=== PATIENT | male | born 1960 | race African-American/Black ===

== ENCOUNTER 2018-02-08 05:48 | Inpatient (IN) | payer OTHER ==
[~2018-02-08] VITALS: Ht 195.6 cm; Wt 96.2 kg
[~2018-02-08 05:48] MED LIST: BACLOFEN10 MG PO; FERROUS SULFAT325 MG PO; GABAPENTIN400 MG PO; NORCO 10-325 T1 EACH PO; OXYBUTYNIN CHLOR5 MG PO; VIT C PO; VIT E PO; ZINC SULFATE220 MG PO
[2018-02-08] MEDS ORDERED: CEFAZOLIN SOD 1 GM VIAL ONE (07:45)
[2018-02-08] MEDS ORDERED: BACITRACIN 50,000 UNIT VIAL ONE ×2 (08:15→09:02)
[2018-02-08] MEDS ORDERED: MUPIROCIN 2% OINT 22 GM TUBE ONE (10:50)
[2018-02-08 12:00] VITALS: BP 142/69
[2018-02-08 13:00] VITALS: BP 142/69
--- NOTE | 2018-02-08 14:48 | Operative Report ---
DATE OF PROCEDURE: February 08, 2018 PREOPERATIVE DIAGNOSES 1. Sacral pressure ulcer, stage IV. 2. Right ischial pressure sore, unstageable. POSTOPERATIVE DIAGNOSES 1. Sacral pressure ulcer, stage IV. 2. Right ischial pressure sore, unstageable. PROCEDURES 1. Excision of sacral pressure ulcers and fasciocutaneous flap closure. 2. Direct excision of right ischial pressure sore and direct closure. ANESTHESIA: General. HISTORY: The patient is a 57-year-old C6 quadriplegic since 2007. He has had multiple pressure sores in the past that have been repaired. He has a large sacral ulcer and a right ischial pressure ulcer. The risks, benefits and alternatives of treatment were discussed with the patient. He is prepared to undergo the procedures outlined. DETAILS OF PROCEDURE: Patient was marked preoperatively in the holding area. He was brought to the operating theater. After the induction of adequate general anesthesia, he was then placed prone on the operating table. A time out was performed, and he was then prepped and draped in the prone position. At this point, the right ischial pressure sore was marked out. Then it was incised through the skin and subcutaneous tissues sharply. The incision was carried through the deep subcutaneous tissue until the entire ulcer was completely excised. It was removed. The wound was irrigated with antibiotic-containing solution. The wound was then made hemostatic using electrocautery and then closed with 2-0 Vicryl in interrupted buried fashion followed by 3-0 nylon in interrupted horizontal mattress fashion. The sacral pressure ulcer first had its skin edges excised full thickness down to the level of the sacrum. At this point, all the colonized capsule and granulation tissue were then curetted and removed. The wound was then pulse lavaged with several liters of antibiotic-containing solution. Because of the size of the defect, a large fasciocutaneous rotation advancement flap was then designed. The incision was made through the skin and subcutaneous tissues. Bleeding was controlled using electrocautery. Using electrocautery, the incision was deepened through the subcutaneous and the fascial tissues. The fasciocutaneous flap was then elevated off of the musculature of the upper sacrum and the lower back until sufficient rotation and advancement of the flap could be performed and the wound closed primarily without any undue tension. At this point, 10-Ecuadorean drains were placed percutaneously through the upper portions of the lower back and the drains secured to the skin using 3-0 nylon sutures. The flap was then advanced and rotated into place and secured using 2-0 Vicryl in an interrupted fashion to approximate the deep fascial layer, and 3-0 Vicryl in interrupted buried fashion was used to approximate the deep dermis, and 3-0 nylon was then used in a horizontal interrupted mattress fashion to approximate the superficial tissues. A VAC dressing was then placed over the entire incision and set for 150 mm of continuous negative pressure, and the seal was noted to be satisfactory without leaks. The right ischial pressure sore was dressed with Xeroform gauze, Bactroban ointment and a sterile dressing. The patient was then made supine onto a [place] bed. He was extubated and returned to the recovery room in satisfactory condition and admitted for further care and treatment. Job#: [id number]
[2018-02-08 16:21] VITALS: BP 136/72
[2018-02-08] MEDS ORDERED: ACETAMINOPHEN 325 MG TAB PO PRN (16:45)
[2018-02-08] MEDS ORDERED: ONDANSETRON HCL INJ 2 MG/ML VIAL IV PRN (16:45)
[2018-02-08] MEDS: CEFAZOLIN SOD 1 GM VIAL IV SCH (16:47)
[2018-02-08] MEDS: GABAPENTIN 400 MG CAP PO SCH (16:47)
[2018-02-08] MEDS: BACLOFEN 10 MG TAB PO SCH (16:47)
[2018-02-08] MEDS ORDERED: BACLOFEN 10 MG TAB PO SCH (17:00)
[2018-02-08] MEDS: OXYBUTYNIN CHLORIDE 5 MG TAB PO SCH (17:14)
[2018-02-08] MEDS ORDERED: ONDANSETRON HCL INJ 2 MG/ML VIAL ONE (17:35)
[2018-02-08] MEDS ORDERED: MIDAZOLAM HCL 2 MG/2 ML VIAL ONE (17:35)
[2018-02-08] MEDS ORDERED: SEVOFLURANE INHAL SOLN 250 ML PEN BTL ONE (17:35)
[2018-02-08] MEDS ORDERED: ROCURONIUM BROMIDE 10 MG/ML 5ML VIAL ONE (17:35)
[2018-02-08] MEDS ORDERED: GLYCOPYRROLATE INJ 1MG/ 5 ML SYR ONE (17:35)
[2018-02-08] MEDS ORDERED: DEXAMETHASONE SOD PHOS INJ 4 MG/ML VIAL ONE (17:35)
[2018-02-08] MEDS ORDERED: LIDOCAINE HCL 2% LOCAL INJ 5 ML SDV VIAL INJ ONE (17:35)
[2018-02-08] MEDS ORDERED: PROPOFOL IV EMULSION 10 MG/ML 20 ML VIAL ONE (17:35)
[2018-02-08] MEDS ORDERED: FENTANYL CITRATE/PF 100MCG/2 ML INJ ONE (17:35)
[2018-02-08] MEDS ORDERED: HYDROCODONE/APAP 10MG-325MG TAB PO SCH (18:00)
[2018-02-08 20:00] VITALS: BP 126/63
[2018-02-08 20:58] LABS: BASOPHILS % 0.3 % (0.0-1.0); EOSINOPHILS % 0.1 % (0.0-6.0); HEMATOCRIT 34.1 % (38.2-49.6); HEMOGLOBIN 10.5 g/dL (14.0-18.0); LYMPHOCYTES # (AUTO) 0.9 (1.0-3.2); LYMPHOCYTES % 12.7 % (18.0-39.1); MEAN CORPUSCULAR HEMOGLOBIN 27.9 pg (28-32); MEAN CORPUSCULAR HGB CONC 30.8 g/dL (31-35); MEAN CORPUSCULAR VOLUME 90.7 fL (81-99); MONOCYTES # (AUTO) 0.5 (0.2-0.8); MONOCYTES % 6.4 % (4.4-11.3); NEUTROPHILS # (AUTO) 5.9 (2.1-6.9); NEUTROPHILS % 80.2 % (38.7-80.0); PLATELET COUNT 240 x10e3/uL (140-360); RED BLOOD COUNT 3.76 x10e6/uL (4.3-5.7); RED CELL DISTRIBUTION WIDTH 15.9 % (11.7-14.4)
[2018-02-08 21:12] LABS: ANION GAP 12.9 mmol/L (8-16); BLOOD UREA NITROGEN 12 mg/dL (7-26); BUN/CREATININE RATIO 16 (6-25); CALCIUM 9.2 mg/dL (8.4-10.2); CARBON DIOXIDE 30 mmol/L (22-29); CHLORIDE 103 mmol/L (98-107); CREATININE, SERUM 0.75 mg/dL (0.72-1.25); EST GLOMERULAR FILTRATION RATE > 60 ML/MIN (60-); GLUCOSE 99 mg/dL (74-118); POTASSIUM 4.9 mmol/L (3.5-5.1); SODIUM 141 mmol/L (136-145)
[2018-02-09] VITALS (8 sets, daily range): BP systolic 104–149; BP diastolic 55–90
[2018-02-09] MEDS: CEFAZOLIN SOD 1 GM VIAL IV SCH ×3 (00:15→16:50)
[2018-02-09 04:50] LABS: BASOPHILS % 0.1 % (0.0-1.0); EOSINOPHILS # (AUTO) 0.1 (0.0-0.4); EOSINOPHILS % 1.4 % (0.0-6.0); HEMATOCRIT 32.5 % (38.2-49.6); LYMPHOCYTES # (AUTO) 2.1 (1.0-3.2); MEAN CORPUSCULAR HEMOGLOBIN 27.9 pg (28-32); MEAN CORPUSCULAR HGB CONC 30.8 g/dL (31-35); MEAN CORPUSCULAR VOLUME 90.8 fL (81-99); MONOCYTES # (AUTO) 0.7 (0.2-0.8); NEUTROPHILS # (AUTO) 6.1 (2.1-6.9); NEUTROPHILS % 67.1 % (38.7-80.0); PLATELET COUNT 232 x10e3/uL (140-360); RED BLOOD COUNT 3.58 x10e6/uL (4.3-5.7)
[2018-02-09 05:08] LABS: ANION GAP 12.4 mmol/L (8-16); BLOOD UREA NITROGEN 13 mg/dL (7-26); BUN/CREATININE RATIO 17 (6-25); CALCIUM 9.1 mg/dL (8.4-10.2); CARBON DIOXIDE 30 mmol/L (22-29); CHLORIDE 105 mmol/L (98-107); CREATININE, SERUM 0.78 mg/dL (0.72-1.25); EST GLOMERULAR FILTRATION RATE > 60 ML/MIN (60-); GLUCOSE 106 mg/dL (74-118); POTASSIUM 4.4 mmol/L (3.5-5.1); SODIUM 143 mmol/L (136-145)
[2018-02-09] MEDS: GABAPENTIN 400 MG CAP PO SCH ×2 (09:10→16:50)
[2018-02-09] MEDS: VITAMIN E 400 UNIT CAP PO SCH (09:10)
[2018-02-09] MEDS: OXYBUTYNIN CHLORIDE 5 MG TAB PO SCH (09:10)
[2018-02-09] MEDS: ASCORBIC ACID 500 MG TAB PO SCH (09:10)
[2018-02-09] MEDS: FERROUS SULFATE 325 MG TAB PO SCH (09:10)
[2018-02-09] MEDS: ZINC SULFATE 220 MG CAP PO SCH (09:10)
[2018-02-09] MEDS: BACLOFEN 10 MG TAB PO SCH ×2 (09:10→16:50)
[2018-02-09] MEDS: ENOXAPARIN SOD INJ 40 MG/0.4 ML SYR SC SCH (16:50)
[2018-02-10] VITALS (8 sets, daily range): BP systolic 90–154; BP diastolic 52–87
[2018-02-10] MEDS: CEFAZOLIN SOD 1 GM VIAL IV SCH ×3 (00:20→15:37)
[2018-02-10] MEDS: ZINC SULFATE 220 MG CAP PO SCH (09:28)
[2018-02-10] MEDS: OXYBUTYNIN CHLORIDE 5 MG TAB PO SCH (09:28)
[2018-02-10] MEDS: GABAPENTIN 400 MG CAP PO SCH ×2 (09:28→17:07)
[2018-02-10] MEDS: BACLOFEN 10 MG TAB PO SCH ×2 (09:28→17:07)
[2018-02-10] MEDS: VITAMIN E 400 UNIT CAP PO SCH (09:28)
[2018-02-10] MEDS: ASCORBIC ACID 500 MG TAB PO SCH (09:28)
[2018-02-10] MEDS: FERROUS SULFATE 325 MG TAB PO SCH (09:28)
[2018-02-10] MEDS: ENOXAPARIN SOD INJ 40 MG/0.4 ML SYR SC SCH (17:07)
[2018-02-11] VITALS (7 sets, daily range): BP systolic 106–127; BP diastolic 56–79
[2018-02-11] MEDS: CEFAZOLIN SOD 1 GM VIAL IV SCH ×3 (00:14→17:02)
[2018-02-11] MEDS: OXYBUTYNIN CHLORIDE 5 MG TAB PO SCH (07:48)
[2018-02-11] MEDS: GABAPENTIN 400 MG CAP PO SCH ×2 (07:48→17:02)
[2018-02-11] MEDS: ZINC SULFATE 220 MG CAP PO SCH (07:48)
[2018-02-11] MEDS: VITAMIN E 400 UNIT CAP PO SCH (07:48)
[2018-02-11] MEDS: BACLOFEN 10 MG TAB PO SCH ×2 (07:48→17:02)
[2018-02-11] MEDS: FERROUS SULFATE 325 MG TAB PO SCH (07:48)
[2018-02-11] MEDS: ASCORBIC ACID 500 MG TAB PO SCH (07:48)
[2018-02-11] MEDS ORDERED: DOCUSATE SODIUM 100 MG CAP PO PRN (09:45)
[2018-02-11] MEDS: SILVER ANTIMICROBIAL WOUND GEL 45ML TP SCH (12:00)
[2018-02-11] MEDS: ENOXAPARIN SOD INJ 40 MG/0.4 ML SYR SC SCH (17:02)
[2018-02-12] VITALS: BP 114/67
[2018-02-12] MEDS: CEFAZOLIN SOD 1 GM VIAL IV SCH ×3 (00:21→15:52)
[2018-02-12] MEDS: HYDROCODONE/APAP 10MG-325MG TAB PO PRN ×4 (00:45→21:30)
[2018-02-12 04:00] VITALS: BP 133/75
[2018-02-12 07:58] VITALS: BP 187/97
[2018-02-12] MEDS: ASCORBIC ACID 500 MG TAB PO SCH (09:39)
[2018-02-12] MEDS: ZINC SULFATE 220 MG CAP PO SCH (09:39)
[2018-02-12] MEDS: BACLOFEN 10 MG TAB PO SCH ×2 (09:39→15:52)
[2018-02-12] MEDS: OXYBUTYNIN CHLORIDE 5 MG TAB PO SCH (09:39)
[2018-02-12] MEDS: VITAMIN E 400 UNIT CAP PO SCH (09:39)
[2018-02-12] MEDS: FERROUS SULFATE 325 MG TAB PO SCH (09:39)
[2018-02-12] MEDS: GABAPENTIN 400 MG CAP PO SCH ×2 (09:39→15:52)
[2018-02-12] MEDS: ENOXAPARIN SOD INJ 40 MG/0.4 ML SYR SC SCH (15:52)
[2018-02-12 16:39] VITALS: BP 126/77
[2018-02-12 20:00] VITALS: BP 97/55
[2018-02-13] VITALS: BP 147/88
[2018-02-13] MEDS: CEFAZOLIN SOD 1 GM VIAL IV SCH ×3 (00:55→16:50)
[2018-02-13 04:00] VITALS: BP 119/55
[2018-02-13 08:30] VITALS: BP 172/96
[2018-02-13] MEDS: SILVER ANTIMICROBIAL WOUND GEL 45ML TP SCH (09:00)
[2018-02-13] MEDS: GABAPENTIN 400 MG CAP PO SCH ×2 (09:10→16:50)
[2018-02-13] MEDS: ASCORBIC ACID 500 MG TAB PO SCH (09:10)
[2018-02-13] MEDS: BACLOFEN 10 MG TAB PO SCH ×2 (09:10→16:50)
[2018-02-13] MEDS: VITAMIN E 400 UNIT CAP PO SCH (09:10)
[2018-02-13] MEDS: FERROUS SULFATE 325 MG TAB PO SCH (09:10)
[2018-02-13] MEDS: OXYBUTYNIN CHLORIDE 5 MG TAB PO SCH (09:10)
[2018-02-13] MEDS: ZINC SULFATE 220 MG CAP PO SCH (09:10)
[2018-02-13 12:25] VITALS: BP 172/96
[2018-02-13 16:22] VITALS: BP 167/99
[2018-02-13] MEDS: ENOXAPARIN SOD INJ 40 MG/0.4 ML SYR SC SCH (16:50)
[2018-02-13 20:00] VITALS: BP 109/59
[2018-02-14] VITALS (8 sets, daily range): BP systolic 93–155; BP diastolic 55–91
[2018-02-14] MEDS: CEFAZOLIN SOD 1 GM VIAL IV SCH ×3 (00:39→17:44)
[2018-02-14] MEDS: FERROUS SULFATE 325 MG TAB PO SCH (09:00)
[2018-02-14] MEDS: SILVER ANTIMICROBIAL WOUND GEL 45ML TP SCH (09:00)
[2018-02-14] MEDS: ASCORBIC ACID 500 MG TAB PO SCH (09:11)
[2018-02-14] MEDS: GABAPENTIN 400 MG CAP PO SCH ×2 (09:11→17:44)
[2018-02-14] MEDS: BACLOFEN 10 MG TAB PO SCH ×2 (09:11→17:44)
[2018-02-14] MEDS: OXYBUTYNIN CHLORIDE 5 MG TAB PO SCH (09:11)
[2018-02-14] MEDS: VITAMIN E 400 UNIT CAP PO SCH (09:11)
[2018-02-14] MEDS: ZINC SULFATE 220 MG CAP PO SCH (09:11)
[2018-02-14] MEDS: MUPIROCIN 2% OINT 22 GM TUBE TOP SCH (12:55)
[2018-02-14 16:42] LABS: BASOPHILS % 0.5 % (0.0-1.0); EOSINOPHILS # (AUTO) 0.4 (0.0-0.4); EOSINOPHILS % 3.9 % (0.0-6.0); HEMATOCRIT 33.8 % (38.2-49.6); HEMOGLOBIN 10.4 g/dL (14.0-18.0); LYMPHOCYTES # (AUTO) 1.8 (1.0-3.2); LYMPHOCYTES % 20.6 % (18.0-39.1); MEAN CORPUSCULAR HEMOGLOBIN 27.9 pg (28-32); MEAN CORPUSCULAR HGB CONC 30.8 g/dL (31-35); MEAN CORPUSCULAR VOLUME 90.6 fL (81-99); MONOCYTES # (AUTO) 0.8 (0.2-0.8); MONOCYTES % 9.4 % (4.4-11.3); NEUTROPHILS # (AUTO) 5.8 (2.1-6.9); NEUTROPHILS % 65.1 % (38.7-80.0); PLATELET COUNT 289 x10e3/uL (140-360); RED BLOOD COUNT 3.73 x10e6/uL (4.3-5.7); RED CELL DISTRIBUTION WIDTH 15.5 % (11.7-14.4)
[2018-02-14 17:00] LABS: ANION GAP 15.4 mmol/L (8-16); BLOOD UREA NITROGEN 16 mg/dL (7-26); BUN/CREATININE RATIO 21 (6-25); CALCIUM 9.8 mg/dL (8.4-10.2); CARBON DIOXIDE 28 mmol/L (22-29); CHLORIDE 101 mmol/L (98-107); CREATININE, SERUM 0.77 mg/dL (0.72-1.25); EST GLOMERULAR FILTRATION RATE > 60 ML/MIN (60-); GLUCOSE 84 mg/dL (74-118); POTASSIUM 4.4 mmol/L (3.5-5.1); SODIUM 140 mmol/L (136-145)
[2018-02-14] MEDS: ENOXAPARIN SOD INJ 40 MG/0.4 ML SYR SC SCH (17:44)
[2018-02-15] VITALS (7 sets, daily range): BP systolic 100–166; BP diastolic 60–79
[2018-02-15] MEDS: CEFAZOLIN SOD 1 GM VIAL IV SCH ×3 (00:45→18:18)
[2018-02-15] MEDS: FERROUS SULFATE 325 MG TAB PO SCH (07:49)
[2018-02-15] MEDS: ASCORBIC ACID 500 MG TAB PO SCH (07:50)
[2018-02-15] MEDS: SILVER ANTIMICROBIAL WOUND GEL 45ML TP SCH (07:50)
[2018-02-15] MEDS: VITAMIN E 400 UNIT CAP PO SCH (07:50)
[2018-02-15] MEDS: OXYBUTYNIN CHLORIDE 5 MG TAB PO SCH (07:50)
[2018-02-15] MEDS: ZINC SULFATE 220 MG CAP PO SCH (07:50)
[2018-02-15] MEDS: GABAPENTIN 400 MG CAP PO SCH ×2 (07:50→17:45)
[2018-02-15] MEDS: BACLOFEN 10 MG TAB PO SCH ×2 (07:50→17:45)
--- NOTE | 2018-02-15 14:02 | Discharge Summary ---
FINAL DISCHARGE DIAGNOSES 1. Sacral pressure ulcer, stage 4, status post excision of the sacral pressure ulcer with fasciocutaneous flap closure. 2. Right ischial pressure sore, unstageable. 3. Paraplegia. 4. Suprapubic catheter. CONSULTANTS: Plastic surgery. VITAL SIGNS: Temperature is 97, pulse 68, respiratory rate 16, blood pressure 125/64, pulse ox 99% on room air. LAB FINDINGS: White count 8.8, hemoglobin 10.4, hematocrit 33.8, platelets of 289. Chemistry: Sodium 140, potassium 4.4, chloride 101, bicarb 20, anion gap of 15, BUN 16, creatinine 0.77, glucose 84, calcium 9.8. MICROBIOLOGY: None. IMAGING STUDIES: None. HOSPITAL COURSE: This is a 57-year-old male with known paraplegia who came in as an admission by plastic surgery after having a sacral wound and having a fasciocutaneous flap closure performed by plastic surgery. Patient did extremely well with no other complaints. He also now has a wound VAC placed by plastic surgery. Patient is to continue with wound VAC and will be discharged to a care home facility. Patient does not have any obvious signs of infection, and no recommendation for IV antibiotics is needed. Patient was being treated by an outpatient wound care physician, and he was not on any antibiotics while he was there. Patient currently doing well with no other complaints. He has been accepted to a care home facility and to continue his wound VAC and monitoring of his wounds. On the day of discharge, vital signs are stable. Labs reviewed and stable. Patient seen, evaluated and examined thoroughly on the day of discharge. No other complaints. The patient verbalized an understanding and agrees with the plan of care, to follow up accordingly as an outpatient with the primary care physician in 1 week, plastic surgery in 2 weeks, and his wound care physician in 1 week. MEDICATIONS: See med reconciliation form. DISPOSITION: To care home facility. CONDITION: Stable. DIET: Heart healthy. FOLLOWUP: With wound care physician as an outpatient in 2 weeks, plastic surgeon in 2 weeks, and PCP in 1 week. In the event of any worsening, the patient was advised to come back to the ED for further evaluation. Discharge summary took greater than 35 minutes. Job#: [id number]
[2018-02-15] MEDS: MUPIROCIN 2% OINT 22 GM TUBE TOP SCH (16:13)
[2018-02-15] MEDS: ENOXAPARIN SOD INJ 40 MG/0.4 ML SYR SC SCH (17:45)
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
[2018-02-15] MEDS ORDERED: CEFAZOLIN SOD 1 GM/D5W 50ML 50 ML IV SCH (22:00)
[2018-02-16] VITALS: BP 109/65
[2018-02-16] MEDS: CEFAZOLIN SOD 1 GM VIAL IV SCH ×2 (00:03→10:23)
[2018-02-16 04:00] VITALS: BP 116/69
[2018-02-16 07:58] VITALS: BP 151/83
--- NOTE | 2018-02-16 10:21 | Discharge Summary ---
ADDENDUM TO DISCHARGE SUMMARY The patient was supposed to be discharged yesterday to a detention facility; but due to transportation issues, patient was kept overnight until 02/16/2018. Overnight the patient did well with no other complaints. No issues overnight with the nursing staff or with the patient. Vital signs: His temperature is 96.1, pulse 79, respiratory rate 20, blood pressure 151/83, pulse ox 100% on room air. Patient does not have any repeat labs. Patient is otherwise doing well. Patient will be discharged to detention facility later today. JACK MUNOZ MD Job#: [id number]
[2018-02-16] MEDS: ASCORBIC ACID 500 MG TAB PO SCH (10:23)
[2018-02-16] MEDS: MUPIROCIN 2% OINT 22 GM TUBE TOP SCH (10:23)
[2018-02-16] MEDS: VITAMIN E 400 UNIT CAP PO SCH (10:23)
[2018-02-16] MEDS: BACLOFEN 10 MG TAB PO SCH (10:23)
[2018-02-16] MEDS: OXYBUTYNIN CHLORIDE 5 MG TAB PO SCH (10:23)
[2018-02-16] MEDS: GABAPENTIN 400 MG CAP PO SCH (10:23)
[2018-02-16] MEDS: SILVER ANTIMICROBIAL WOUND GEL 45ML TP SCH (10:23)
[2018-02-16] MEDS: FERROUS SULFATE 325 MG TAB PO SCH (10:23)
[2018-02-16] MEDS: ZINC SULFATE 220 MG CAP PO SCH (10:23)
[2018-02-16 12:00] VITALS: BP 103/73
[2018-02-16 15:37] VITALS: BP 102/61
== END 2018-02-16 15:24 | DRG 573 ==
LOC: OR 05:48 → PACU V 13:04 → MED/SURG 13:20
PROVIDERS: ADMIT Plastic Surgery; ATTEND Plastic Surgery
PROC: 0JB70ZZ Excision of Back Subcutaneous Tissue and Fascia, Open Approach (ICD-10-PCS; 2018-02-08)
PROC: 0JX70ZC Transfer Back Subcutaneous Tissue and Fascia with Skin, Subcutaneous Tissue and Fascia, Open Approach (ICD-10-PCS; principal; 2018-02-08 08:30)
DX: L89.154 Pressure ulcer of sacral region, stage 4 (principal); G82.50 Quadriplegia, unspecified; L89.310 Pressure ulcer of right buttock, unstageable; Z96.0 Presence of urogenital implants; Z93.3 Colostomy status; Z87.440 Personal history of urinary (tract) infections; K59.00 Constipation, unspecified; N31.9 Neuromuscular dysfunction of bladder, unspecified; N39.498 Other specified urinary incontinence
CPT/HCPCS: 36415; 80048; 85025; 93005; 96376; 97139; 97605; 97606; J0690; J1100; J1650; J2001; J2250; J2405

== ENCOUNTER 2018-04-16 13:08 | Outpatient (RCR) | payer OTHER | END 2018-05-16 | LOC: WCC 13:08 | PROVIDERS: ATTEND Plastic Surgery | DX: T86.821 Skin graft (allograft) (autograft) failure (principal); L89.892 Pressure ulcer of other site, stage 2; L89.92 Pressure ulcer of unspecified site, stage 2; G82.20 Paraplegia, unspecified; K94.00 Colostomy complication, unspecified; Z74.01 Bed confinement status ==

== ENCOUNTER 2018-05-14 02:00 | Outpatient (RCR) | payer OTHER | END 2018-05-16 | LOC: WCC 02:00 | PROVIDERS: ATTEND Podiatrist Foot & Ankle Surgery | DX: T86.821 Skin graft (allograft) (autograft) failure (principal); L89.892 Pressure ulcer of other site, stage 2; L89.92 Pressure ulcer of unspecified site, stage 2; G82.20 Paraplegia, unspecified; K94.00 Colostomy complication, unspecified; Z74.01 Bed confinement status ==

== ENCOUNTER 2018-06-11 12:01 | Outpatient (RCR) | payer OTHER ==
[2018-05-17 13:59] LABS: BASOPHILS # (AUTO) 0.1 (0.0-0.1); BASOPHILS % 0.8 % (0.0-1.0); EOSINOPHILS # (AUTO) 0.5 (0.0-0.4); EOSINOPHILS % 6.2 % (0.0-6.0); HEMATOCRIT 33.1 % (38.2-49.6); HEMOGLOBIN 9.8 g/dL (14.0-18.0); LYMPHOCYTES # (AUTO) 1.7 (1.0-3.2); LYMPHOCYTES % 22.8 % (18.0-39.1); MEAN CORPUSCULAR HEMOGLOBIN 26.1 pg (28-32); MEAN CORPUSCULAR HGB CONC 29.6 g/dL (31-35); MEAN CORPUSCULAR VOLUME 88.3 fL (81-99); MONOCYTES # (AUTO) 0.8 (0.2-0.8); NEUTROPHILS # (AUTO) 4.4 (2.1-6.9); NEUTROPHILS % 58.8 % (38.7-80.0); PLATELET COUNT 336 x10e3/uL (140-360); RED BLOOD COUNT 3.75 x10e6/uL (4.3-5.7); RED CELL DISTRIBUTION WIDTH 17.2 % (11.7-14.4)
[2018-05-17 14:16] LABS: ALANINE AMINOTRANSFERASE 8 IU/L (0-55); ALBUMIN/GLOBULIN RATIO 0.7 (0.8-2.0); ALKALINE PHOSPHATASE 85 IU/L (40-150); ANION GAP 13.9 mmol/L (8-16); BLOOD UREA NITROGEN 14 mg/dL (7-26); BUN/CREATININE RATIO 20 (6-25); CALCIUM 9.3 mg/dL (8.4-10.2); CARBON DIOXIDE 28 mmol/L (22-29); CHLORIDE 106 mmol/L (98-107); EST GLOMERULAR FILTRATION RATE > 60 ML/MIN (60-); GLUCOSE 79 mg/dL (74-118); POTASSIUM 3.9 mmol/L (3.5-5.1); SODIUM 144 mmol/L (136-145)
[~2018-06-11 12:01] MED LIST changes: +MINERAL OIL/PETROLAT/GLYCERI 6OZ BTL ONE
[2018-06-11] MEDS ORDERED: MINERAL OIL/PETROLAT/GLYCERI 6OZ BTL ONE (18:22)
== END 2018-06-15 ==
LOC: WCC 12:01
PROVIDERS: ATTEND Podiatrist Foot & Ankle Surgery
DX: T86.821 Skin graft (allograft) (autograft) failure (principal); L89.892 Pressure ulcer of other site, stage 2; L89.92 Pressure ulcer of unspecified site, stage 2; Z74.01 Bed confinement status; K94.00 Colostomy complication, unspecified; G82.20 Paraplegia, unspecified
CPT/HCPCS: 36415; 80053; 84134; 85025; 87071; 87075; 87186; 87205

== ENCOUNTER 2018-07-23 10:25 | Outpatient (RCR) | payer OTHER ==
[~2018-07-23 10:25] MED LIST changes: +BALSAM PERU/CASTOR OIL 60 GM OINT...G. TP ONE
== END 2018-08-16 ==
LOC: WCC 10:25
PROVIDERS: ATTEND Podiatrist Foot & Ankle Surgery
DX: T86.821 Skin graft (allograft) (autograft) failure (principal); L89.213 Pressure ulcer of right hip, stage 3; L89.892 Pressure ulcer of other site, stage 2; L89.92 Pressure ulcer of unspecified site, stage 2; G82.20 Paraplegia, unspecified; K94.00 Colostomy complication, unspecified; Z74.01 Bed confinement status

== ENCOUNTER 2018-08-20 14:54 | Outpatient (RCR) | payer MEDICARE ==
[~2018-08-20 14:54] MED LIST changes: -BALSAM PERU/CASTOR OIL 60 GM OINT...G. TP ONE; +COLLAGENASE OINTMENT 30 GM TUBE ONE; +MUPIROCIN 2% OINT 22 GM TUBE ONE
== END 2018-09-13 ==
LOC: WCC 14:54
PROVIDERS: ATTEND Podiatrist Foot & Ankle Surgery
DX: T86.821 Skin graft (allograft) (autograft) failure (principal); L89.213 Pressure ulcer of right hip, stage 3; L89.892 Pressure ulcer of other site, stage 2; L89.92 Pressure ulcer of unspecified site, stage 2; G82.20 Paraplegia, unspecified; K94.00 Colostomy complication, unspecified; Z74.01 Bed confinement status

== ENCOUNTER 2018-09-17 11:09 | Outpatient (RCR) | payer MEDICARE ==
[~2018-09-17 11:09] MED LIST changes: -COLLAGENASE OINTMENT 30 GM TUBE ONE; -MINERAL OIL/PETROLAT/GLYCERI 6OZ BTL ONE; -MUPIROCIN 2% OINT 22 GM TUBE ONE
[2018-09-17] MEDS ORDERED: MUPIROCIN 2% OINT 22 GM TUBE ONE (12:12)
[2018-09-17] MEDS ORDERED: COLLAGENASE OINTMENT 30 GM TUBE ONE (12:12)
[2018-09-17] MEDS ORDERED: LIDOCAINE VISC 2% SOLN 15 ML UDC ONE (12:12)
== END 2018-10-14 ==
LOC: WCC 11:09
PROVIDERS: ATTEND Plastic Surgery
DX: T86.821 Skin graft (allograft) (autograft) failure (principal); L89.213 Pressure ulcer of right hip, stage 3; L89.892 Pressure ulcer of other site, stage 2; L89.92 Pressure ulcer of unspecified site, stage 2; G82.20 Paraplegia, unspecified; K94.00 Colostomy complication, unspecified; Z74.01 Bed confinement status
CPT/HCPCS: 87071; 87075; 87186; 87205

== ENCOUNTER 2018-11-05 12:41 | Outpatient (RCR) | payer MEDICARE ==
[~2018-11-05 12:41] MED LIST changes: +COLLAGENASE OINTMENT 30 GM TUBE ONE; +MINERAL OIL/PETROLAT/GLYCERI 6OZ BTL ONE
== END 2018-11-13 ==
LOC: WCC 12:41
PROVIDERS: ATTEND Plastic Surgery
DX: T86.821 Skin graft (allograft) (autograft) failure (principal); L89.213 Pressure ulcer of right hip, stage 3; L89.892 Pressure ulcer of other site, stage 2; L89.92 Pressure ulcer of unspecified site, stage 2; G82.20 Paraplegia, unspecified; K94.00 Colostomy complication, unspecified; Z74.01 Bed confinement status
CPT/HCPCS: 87071; 87075; 87205

== ENCOUNTER 2018-11-19 14:58 | Outpatient (RCR) | payer MEDICARE ==
[~2018-11-19 14:58] MED LIST changes: -COLLAGENASE OINTMENT 30 GM TUBE ONE; +LIDOCAINE/PRILOCAINE 2.5-2.5% KIT ONE
[2018-11-19 15:22] LABS: BASOPHILS % 0.5 % (0.0-1.0); EOSINOPHILS # (AUTO) 0.3 (0.0-0.4); EOSINOPHILS % 5.2 % (0.0-6.0); HEMATOCRIT 32.1 % (38.2-49.6); HEMOGLOBIN 9.7 g/dL (14.0-18.0); LYMPHOCYTES # (AUTO) 1.3 (1.0-3.2); LYMPHOCYTES % 20.2 % (18.0-39.1); MEAN CORPUSCULAR HEMOGLOBIN 26.1 pg (28-32); MEAN CORPUSCULAR HGB CONC 30.2 g/dL (31-35); MEAN CORPUSCULAR VOLUME 86.3 fL (81-99); MONOCYTES # (AUTO) 0.5 (0.2-0.8); MONOCYTES % 7.9 % (4.4-11.3); NEUTROPHILS # (AUTO) 4.2 (2.1-6.9); NEUTROPHILS % 65.9 % (38.7-80.0); PLATELET COUNT 357 x10e3/uL (140-360); RED BLOOD COUNT 3.72 x10e6/uL (4.3-5.7); RED CELL DISTRIBUTION WIDTH 18.5 % (11.7-14.4)
[2018-11-19 15:37] LABS: ALANINE AMINOTRANSFERASE 9 IU/L (0-55); ALBUMIN 2.8 g/dL (3.5-5.0); ALBUMIN/GLOBULIN RATIO 0.6 (0.8-2.0); ALKALINE PHOSPHATASE 80 IU/L (40-150); ANION GAP 11.8 mmol/L (8-16); BLOOD UREA NITROGEN 11 mg/dL (7-26); BUN/CREATININE RATIO 16 (6-25); CALCIUM 9.7 mg/dL (8.4-10.2); CARBON DIOXIDE 28 mmol/L (22-29); CHLORIDE 104 mmol/L (98-107); CREATININE, SERUM 0.69 mg/dL (0.72-1.25); EST GLOMERULAR FILTRATION RATE > 60 ML/MIN (60-); GLUCOSE 78 mg/dL (74-118); POTASSIUM 3.8 mmol/L (3.5-5.1); SODIUM 140 mmol/L (136-145)
[2018-11-19 15:44] LABS: ERYTHROCYTE SEDIMENTATION RATE 99 mm/hr (0-13)
== END 2018-12-14 ==
LOC: WCC 14:58
PROVIDERS: ATTEND Plastic Surgery
DX: T86.821 Skin graft (allograft) (autograft) failure (principal); L89.213 Pressure ulcer of right hip, stage 3; L89.892 Pressure ulcer of other site, stage 2; I87.312 Chronic venous hypertension (idiopathic) with ulcer of left lower extremity; L97.821 Non-pressure chronic ulcer of other part of left lower leg limited to breakdown of skin; G82.20 Paraplegia, unspecified; K94.00 Colostomy complication, unspecified; Z74.01 Bed confinement status
CPT/HCPCS: 36415; 80053; 84134; 85025; 85651

== ENCOUNTER 2018-12-17 15:00 | Outpatient (RCR) | payer MEDICARE ==
[~2018-12-17 15:00] MED LIST changes: -LIDOCAINE/PRILOCAINE 2.5-2.5% KIT ONE; -MINERAL OIL/PETROLAT/GLYCERI 6OZ BTL ONE
[2019-03-29] MEDS ORDERED: GABAPENTIN800 MG (09:51)
[2019-03-29] MEDS ORDERED: MULTI-VITAMIN1 EACH (09:51)
[2019-03-29] MEDS ORDERED: BACLOFEN20 MG (09:51)
[2019-03-29] MEDS ORDERED: Oxybutynin Chloride PO (09:51)
== END 2019-01-13 ==
LOC: WCC 15:00
PROVIDERS: ATTEND Plastic Surgery
DX: T86.821 Skin graft (allograft) (autograft) failure (principal); L89.892 Pressure ulcer of other site, stage 2; I87.312 Chronic venous hypertension (idiopathic) with ulcer of left lower extremity; L97.821 Non-pressure chronic ulcer of other part of left lower leg limited to breakdown of skin; G82.20 Paraplegia, unspecified; K94.00 Colostomy complication, unspecified; Z74.01 Bed confinement status

== ENCOUNTER → 2019-01-21 | Outpatient (CLI) | payer MEDICARE ==
[~2019-01-21] MED LIST changes: +BACLOFEN20 MG; +GABAPENTIN800 MG; +MULTI-VITAMIN1 EACH; +Oxybutynin Chloride PO
== END ==
LOC: WCC 12:26
PROVIDERS: ATTEND Plastic Surgery
DX: T86.821 Skin graft (allograft) (autograft) failure (principal); I87.312 Chronic venous hypertension (idiopathic) with ulcer of left lower extremity; L97.821 Non-pressure chronic ulcer of other part of left lower leg limited to breakdown of skin; L89.213 Pressure ulcer of right hip, stage 3; L89.892 Pressure ulcer of other site, stage 2; G82.20 Paraplegia, unspecified; K94.00 Colostomy complication, unspecified; Z74.01 Bed confinement status

== ENCOUNTER 2019-03-11 12:56 | Outpatient (RCR) | payer MEDICARE ==
[~2019-03-11 12:56] MED LIST changes: -BACLOFEN20 MG; -GABAPENTIN800 MG; +LIDOCAINE VISC 2% SOLN 15 ML UDC ONE; +MINERAL OIL/PETROLAT/GLYCERI 6OZ BTL ONE; -MULTI-VITAMIN1 EACH; -Oxybutynin Chloride PO
[2019-03-29] MEDS ORDERED: Oxybutynin Chloride PO (09:51)
[2019-03-29] MEDS ORDERED: BACLOFEN20 MG (09:51)
[2019-03-29] MEDS ORDERED: GABAPENTIN800 MG (09:51)
[2019-03-29] MEDS ORDERED: MULTI-VITAMIN1 EACH (09:51)
== END 2019-03-16 ==
LOC: WCC 12:56
PROVIDERS: ATTEND Plastic Surgery
DX: T86.821 Skin graft (allograft) (autograft) failure (principal); L89.213 Pressure ulcer of right hip, stage 3; L89.892 Pressure ulcer of other site, stage 2; K94.00 Colostomy complication, unspecified; I87.312 Chronic venous hypertension (idiopathic) with ulcer of left lower extremity; L97.821 Non-pressure chronic ulcer of other part of left lower leg limited to breakdown of skin; G82.20 Paraplegia, unspecified; Z74.01 Bed confinement status

== ENCOUNTER → 2019-04-02 | Day surgery (SDC) | payer MEDICARE ==
[~2019-04-02] MED LIST changes: +BACITRACIN 50,000 UNIT VIAL ONE; +BACLOFEN20 MG; +CEFAZOLIN SOD 1 GM/NS 50ML 50 ML IV ONE; +FENTANYL CITRATE/PF 100MCG/2 ML INJ ONE; +GABAPENTIN800 MG; -LIDOCAINE VISC 2% SOLN 15 ML UDC ONE; +MIDAZOLAM HCL 2 MG/2 ML VIAL ONE; +MINERAL OIL STERILE 10ML VIAL ONE; -MINERAL OIL/PETROLAT/GLYCERI 6OZ BTL ONE; +MULTI-VITAMIN1 EACH; +MUPIROCIN 2% OINT 22 GM TUBE ONE; +Oxybutynin Chloride PO; +PROPOFOL IV EMULSION 10 MG/ML 20 ML VIAL ONE
--- OUTSIDE RECORDS SUMMARY | 2019-04-02 06:17 | XMS REPORT | Continuity of Care Document ---
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 Dosing Weight 100, kg, Priority: STAT, Start date: 01/06/18 0:29:00 CDT, Stop date: 01/06/18 0:29:00 CDTNotes: (Same as: Motrin) "Do Not Crush" Give with food. Inactive 01/06/2018 [facility] Sodium Chloride 0.9% (Bolus) IV 1,000 mL, Infuse Over: 1 hr, Route: IV, ONCE, Priority: STAT, Dosing Weight 100 kg, Start date: 01/05/18 23:07:00 CDT, Stop date: 01/05/18 23:07:00 CDT Inactive 01/06/2018 [facility] Saline Flush 0.9% 10 mL, Route: IVP, Drug Form: INJ, Dosing Weight 100, kg, PRN, PRN Line Flush, Start date: 01/05/18 23:07:00 CDT, Duration: 30 day, Stop date: 02/04/18 23:06:00 CDTNotes: (Same as: BD Posiflush) No Longer Active 01/06/2018 [facility] Sulfamethoxazole 800 MG / Trimethoprim 160 MG Oral Tablet [Bactrim] 1 tab, PO, BID, X 7 day, # 14 tab, 0 Refill(s) Active 11/01/2016 [facility] Ciprofloxacin 500 MG Oral Tablet [Cipro] 500 mg=1 tab, PO, Q12H, X 7 day, # 14 tab, 0 Refill(s) Active 11/01/2016 [facility] Ceftriaxone 2 gm, Route: IVPB, ONCE, Dosing Weight 96.364, kg, Priority: STAT, Start date: 10/31/16 22:49:00 CDT, Stop date: 10/31/16 22:49:00 CDTNotes: (Same As: Rocephin). Use with 100 mL NS and infuse over 30 m in MEDICATION WASTE Product Size: 2000 mg Product Wasted: ___ mg Inactive 11/01/2016 [facility] Saline Flush 0.9% 10 mL, Route: IVP, Drug Form: INJ, Dosing Weight 96.364, kg, PRN, PRN Line Flush, Start date: 10/31/16 20:31:00 CDT, Duration: 30 day, Stop date: 11/30/16 20:30:00 CDTNotes: (Same as: BD Posiflush) No Longer Active 11/01/2016 [facility] Sodium Chloride 0.154 MEQ/ML Injectable Solution 1,000 mL, 1,000 ml/hr, Infuse Over: 1 hr, Route: IV, 1,000, Drug form: INJ, ONCE, Priority: STAT, Dosing Weight 96.364 kg, Start date: 10/31/16 20:31:00 CDT, Duration: 1 doses or times, Stop date: 10/31/16 20:31:00 CDT Inactive 11/01/2016 [facility] Saline Flush 0.9% 10 mL, Route: IVP, Drug Form: INJ, Dosing Weight 96.364, kg, PRN, PRN Line Flush, Start date: 08/24/15 11:26:00, Duration: 30 day, Stop date: 09/23/15 11:25:00Notes: Same as: BD Posiflush Sterile Inactive 08/24/2015 [facility] Aquaphor 1 appl, Route: TOP, Daily, Drug form: OINT, Start date: 05/22/15 14:00:00, Duration: 30 day, Stop date: 06/21/15 9:00:00Notes: (Same as: Aquaphor) Inactive 05/22/2015 [facility] ascorbic acid 500 mg=1 tab, PO, BID, 0 Refill(s) Active 05/22/2015 [facility] docusate sodium 100 mg oral capsule 100 mg=1 cap, PO, BID, PRN Constipation, 0 Refill(s) Active 05/22/2015 [facility] Enoxaparin 40 mg=0.4 mL, SUB-Q, [id number], 0 Refill(s) Active 05/22/2015 [facility] Sodium Hypochlorite 5 MG/ML Topical Solution 1 appl, TOP, Q12H, 0 Refill(s) Active 05/22/2015 [facility] pantoprazole 40 mg oral enteric coated tablet 40 mg=1 tab, PO, Before Breakfast, 0 Refill(s) Active 05/22/2015 [facility] Vancomycin 1 ag=400 mL, IVPB, [id number], 0 Refill(s) Active 05/22/2015 [facility] metroNIDAZOLE intravenous solution 500 my=423 mL, IVPB, [id number], 0 Refill(s) Active 05/22/2015 [facility] Docusate Sodium 100 MG Oral Capsule [Colace] 100 mg, 1 cap, Route: PO, Drug form: CAP, BID, Dosing Weight 96.364, kg, Start date: 05/19/15 17:00:00, Duration: 30 day, Stop date: 06/18/15 9:00:00Notes: (Same as: Colace) (Do Not Crush) No Longer Active 05/19/2015 [facility] Vancomycin 1 gm, 200 mL, Route: IVPB, Drug form: INJ, [id number], Dosing Weight 96.364, kg, Start date: 05/16/15 17:00:00, Duration: 30 day, Stop date: 06/15/15 5:00:00Notes: TIME CRITICAL MEDICATION No Longer Active 05/16/2015 [facility] Dakins Solution 0.5% topical 1 appl, Route: TOP, Daily, Drug form: SOLN, Start date: 05/15/15 9:00:00, Duration: 30 day, Stop date: 06/13/15 9:00:00 No Longer Active 05/15/2015 [facility] ferrous sulfate 325 mg, 1 tab, Route: PO, Drug form: ECTAB, Daily, Dosing Weight 96.364, kg, Start date: 05/15/15 9:00:00, Duration: 30 day, Stop date: 06/13/15 9:00:00Notes: Give with food. "Do Not Crush" No Longer Active 05/15/2015 [facility] Carafate 1 gm, 1 tab, Route: PO, Drug form: TAB, QID, Dosing Weight 96.364, kg, Start date: 05/14/15 21:00:00, Duration: 7 day, Stop date: 05/21/15 17:00:00Notes: May interfere w/enteral feeds - Take 1 hr before or 2 hr after antacids, dairy pdt, meals & minerals - On empty stomach. (Same As: Carafate) No Longer Active 05/15/2015 [facility] Melatonin 3 MG Extended Release Tablet 3 mg, 1 tab, Route: PO, Drug Form: TAB, Dosing Weight 96.364, kg, Bedtime, Start date: 05/14/15 21:00:00, Duration: 30 day, Stop date: 06/12/15 21:00:00Notes: (Same as: Melatonin) No Longer Active 05/15/2015 [facility] pantoprazole 40 mg, 1 tab, Route: PO, Drug form: ECTAB, Before Breakfast, Dosing Weight 96.364, kg, Priority: NOW, Start date: 05/14/15 18:31:00, Duration: 30 day, Stop date: 06/13/15 7:30:00Notes: Tablet should not be chewed or crushed. (Same as: Protonix) No Longer Active 05/14/2015 [facility] oxybutynin 5 mg, 1 tab, Route: PO, Drug form: TAB, BID, Dosing Weight 96.364, kg, Start date: 05/14/15 17:00:00, Duration: 30 day, Stop date: 06/13/15 9:00:00Notes: Same as: Ditropan) No Longer Active 05/14/2015 [facility] gabapentin 800 mg, 2 cap, Route: PO, Drug form: CAP, BID, Dosing Weight 96.364, kg, Start date: 05/14/15 17:00:00, Duration: 30 day, Stop date: 06/13/15 9:00:00Notes: (Same as: Neurontin) No Longer Active 05/14/2015 [facility] Baclofen 10 mg, 1 tab, Route: PO, Drug form: TAB, BID, Dosing Weight 96.364, kg, Start date: 05/14/15 17:00:00, Duration: 30 day, Stop date: 06/13/15 9:00:00Notes: (Same As: Lioresal) No Longer Active 05/14/2015 [facility] oxybutynin 5 mg, PO, BID, 0 Refill(s) Active 05/14/2015 [facility] oxybutynin 10 mg oral tablet, extended release 10 mg=1 tab, PO, BID, 0 Refill(s) Inactive 05/14/2015 [facility] tramadol hydrochloride 50 MG Oral Tablet 50 mg, 1 tab, Route: PO, Drug form: TAB, Q6H, Dosing Weight 96.364, kg, PRN Pain Score 1-5, Start date: 05/14/15 15:52:00, Duration: 30 day, Stop date: 06/13/15 15:51:00Notes: Not to exceed 400mg/day. (Same As: Ultram) No Longer Active 05/14/2015 [facility] Ondansetron 4 mg, Route: IVP, ONCE, Dosing Weight 96.364, kg, PRN Nausea & Vomiting, Start date: 05/14/15 14:18:00 Inactive 05/14/2015 [facility] Flumazenil 0.2 mg, Route: IVP, PRN, Dosing Weight 96.364, kg, PRN Benzodiazepine Reversal, Initial dose, Start date: 05/14/15 14:18:00, Duration: 30 day, Stop date: 06/13/15 13:17:00 Inactive 05/14/2015 [facility] Naloxone 0.04 mg, Route: IVP, Q2MIN, Dosing Weight 96.364, kg, PRN Narcotic Reversal, Start date: 05/14/15 14:18:00, Duration: 8 doses or times, Stop date: Limited # of times Inactive 05/14/2015 [facility] Fentanyl 50 microgram, Route: IVP, Q5Min, Dosing Weight 96.364, kg, PRN Pain Score 7-10, Start date: 05/14/15 14:18:00, Duration: 2 doses or times, Stop date: Limited # of times Inactive 05/14/2015 [facility] Hydromorphone 0.5 mg, Route: IVP, Q5Min, Dosing Weight 96.364, kg, PRN Pain Score 7-10, Start date: 05/14/15 14:18:00, Duration: 4 doses or times, Stop date: Limited # of times Inactive 05/14/2015 [facility] Meperidine 12.5 mg, Route: IVP, Q30Min, Dosing Weight 96.364, kg, PRN Other -See Comment, For shivering, Start date: 05/14/15 14:18:00, Duration: 2 doses or times, Stop date: Limited # of times Inactive 05/14/2015 [facility] Oxycodone Hydrochloride 1 MG/ML Oral Solution 5 mg, Route: NG, Drug form: LIQ, Q4H, Dosing Weight 96.364, kg, PRN Pain Score 4-6, Start date: 05/14/15 14:18:00, Duration: 30 day, Stop date: 06/13/15 14:17:00 Inactive 05/14/2015 [facility] Acetaminophen 1,000 mg, Route: IVPB, Drug form: INJ, ONCE, Dosing Weight 96.364, kg, PRN Pain Score 1-3, Start date: 05/14/15 14:18:00, Duration: 1 doses or times, Stop date: Limited # of times Inactive 05/14/2015 [facility] Calcium Chloride 0.0014 MEQ/ML / Potassium Chloride 0.004 MEQ/ML / Sodium Chloride 0.103 MEQ/ML / Sodium Lactate 0.028 MEQ/ML Injectable Solution 1,000 mL, Rate: 25 ml/hr, Infuse over: 40 hr, Route: IV, Dosing Weight 96.364 kg, Total Volume: 1,000, Start date: 05/14/15 14:18:00, Duration: 30 day, Stop date: 06/13/15 14:17:00 Inactive 05/14/2015 [facility] norepinephrine (ANES) Route: IV, Drug form: INJ, ONCE, Stop date: 05/14/15 14:05:00 Inactive 05/14/2015 [facility] ondansetron (ANES) Route: IV, Drug form: INJ, ONCE, Stop date: 05/14/15 14:05:00 Inactive 05/14/2015 [facility] glycopyrrolate (ANES) Route: IV, Drug form: INJ, ONCE, Stop date: 05/14/15 14:05:00 Inactive 05/14/2015 [facility] neostigmine (ANES) Route: IV, Drug form: INJ, ONCE, Stop date: 05/14/15 14:05:00 Inactive 05/14/2015 [facility] sodium hypochlorite topical 0.5% solution 1 appl, Route: TOP, ONCE, Drug form: SOLN, Start date: 05/14/15 14:00:00, Stop date: 05/14/15 14:00:00Notes: (Dakin's (0.5%=full strength) 480 ml top SOLN) Note: full strength=0.5% sodium hypochlorite. Inactive 05/14/2015 [facility] acetaminophen (ANES) Route: IV, Drug form: INJ, ONCE, Stop date: 05/14/15 13:54:00 Inactive 05/14/2015 [facility] rocuronium (ANES) Route: IV, Drug form: INJ, ONCE, Stop date: 05/14/15 13:02:00 Inactive 05/14/2015 [facility] lidocaine (ANES) Route: IV, Drug form: INJ, ONCE, Stop date: 05/14/15 13:02:00 Inactive 05/14/2015 [facility] fentaNYL (ANES) Route: IV, Drug form: INJ, ONCE, Stop date: 05/14/15 13:02:00 Inactive 05/14/2015 [facility] propofol (ANES) Route: IV, Drug form: INJ, ONCE, Stop date: 05/14/15 13:02:00 Inactive 05/14/2015 [facility] Lactated Ringers Injection IV (ANES) (ANES) Route: IV, Total Volume: 1,000, Start date: 05/14/15 11:50:00, Stop date: 05/14/15 12:50:00 Inactive 05/14/2015 [facility] multivitamin 1 tab, Route: PO, Drug Form: TAB, Dosing Weight 96.364, kg, Daily, Start date: 05/14/15 9:00:00, Duration: 30 day, Stop date: 06/12/15 9:00:00Notes: (Same as:One Tab Daily, Tab-A-Felix + Beta Carotene) Give with food. No Longer Active 05/14/2015 [facility] Zinc Sulfate 220 mg, 1 cap, Route: PO, Drug form: CAP, Daily, Dosing Weight 96.364, kg, Start date: 05/14/15 9:00:00, Duration: 30 day, Stop date: 06/12/15 9:00:00Notes: (Zinc sulfate capsule) - 220 mg Zinc sulfa te=50 mg elemental zinc Same as Zinc Sulfate No Longer Active 05/14/2015 [facility] ascorbic acid 500 mg, 1 tab, Route: PO, Drug form: TAB, BID, Dosing Weight 96.364, kg, Start date: 05/13/15 17:00:00, Duration: 30 day, Stop date: 06/12/15 9:00:00Notes: (Same as: Vitamin C) No Longer Active 05/13/2015 [facility] Beneprotein 7 gm pkt 2 pkt, Route: PO, Drug Form: PWDR, Dosing Weight 96.364, kg, QID-Before Meals, Start date: 05/13/15 16:30:00, Duration: 30 day, Stop date: 06/12/15 11:30:00Notes: (Same as: Beneprotein) No Longer Active 05/13/2015 [facility] sodium hypochlorite topical 0.5% solution 1 appl, Route: TOP, Q12H, Drug form: SOLN, Start date: 05/13/15 16:00:00, Duration: 30 day, Stop date: 06/12/15 9:00:00Notes: (Dakin's (0.5%=full strength) 480 ml top SOLN) Note: full strength=0.5% sodium hypochlorite. No Longer Active 05/13/2015 [facility] Omnipaque 300 100 mL, Route: IVP, Drug Form: SOLN, ONCALL, Start date: 05/13/15 15:00:00, Duration: 2 hr, Stop date: 05/13/15 16:59:00Notes: (Same as:Omnipaque 300). Inactive 05/13/2015 [facility] Flagyl 500 mg, 100 mL, Route: IVPB, Drug form: INJ, [id number], Dosing Weight 96.364, kg, Start date: 05/13/15 0:00:00, Duration: 30 day, Stop date: 06/11/15 16:00:00Notes: (Same as: Flagyl) Avoid alcohol. No Longer Active 05/13/2015 [facility] colistimethate + Sodium Chloride 0.9% IV 100 mL 150 mg, Route: IVPB, Drug form: PDR/INJ, [id number], Dosing Weight 96.364, kg, Start date: 05/12/15 23:00:00, Duration: 30 day, Stop date: 06/21/15 11:00:00Notes: (Same As: Coly-Mycin) No Longer Active 05/13/2015 [facility] cefepime 2 gm, Route: IVPB, [id number], Dosing Weight 96.364, kg, (CrCl >/=50 ml/min, LARD BLEACHER infection or neutropenic fever), Start date: 05/12/15 23:00:00, Duration: 30 day, Stop date: 06/11/15 15:00:00Notes: (Same as: Maxipime) MEDICATION WASTE Product Size: 2000 mg Product Wasted: ___ mg No Longer Active 05/13/2015 [facility] tramadol hydrochloride 50 MG Oral Tablet 50 mg=1 tab, PO, Q6H, PRN Pain, # 40 tab, 0 Refill(s) Active 05/12/2015 [facility] Enoxaparin 40 mg, 0.4 mL, Route: SUB-Q, Drug form: INJ, [id number], Dosing Weight 96.364, kg, Start date: 05/12/15 18:00:00, Duration: 30 day, Stop date: 06/10/15 18:00:00Notes: (Same as: Lovenox) No Longer Active 05/12/2015 [facility] Ondansetron 4 mg, 2 mL, Route: IVP, Drug form: INJ, Q6H, Dosing Weight 96.364, kg, PRN Nausea & Vomiting, Start date: 05/12/15 17:20:00, Duration: 30 day, Stop date: 06/11/15 17:19:00Notes: (Same as: Zofran) MEDICATION WASTE Product Size: 4 mg Product Wasted: ___ mg No Longer Active 05/12/2015 [facility] Morphine 2 mg, 1 mL, Route: IVP, Drug form: INJ, Q4H, Dosing Weight 96.364, kg, PRN Pain Score 7-10, Start date: 05/12/15 17:20:00, Duration: 30 day, Stop date: 06/11/15 17:19:00Notes: (Same as:MORPhine Sulfate) No Longer Active 05/12/2015 [facility] Docusate 100 mg, 1 cap, Route: PO, Drug form: CAP, BID, Dosing Weight 96.364, kg, PRN Constipation, Start date: 05/12/15 17:20:00, Duration: 30 day, Stop date: 06/11/15 17:19:00Notes: (Same as: Colace) (Do Not Crush) No Longer Active 05/12/2015 [facility] Acetaminophen 325 MG / Hydrocodone Bitartrate 5 MG Oral Tablet 2 tab, Route: PO, Drug Form: TAB, Dosing Weight 96.364, kg, Q4H, PRN Pain Score 7-10, Start date: 05/12/15 17:20:00, Duration: 30 day, Stop date: 06/11/15 17:19:00Notes: (Same as: [place] 325/5) Do not exceed 4gm/day of acetaminophen. No Longer Active 05/12/2015 [facility] Acetaminophen 650 mg, 2 tab, Route: PO, Drug form: TAB, Q4H, Dosing Weight 96.364, kg, PRN Pain 1-3/Temp > 100.4 F, Start date: 05/12/15 17:20:00, Duration: 30 day, Stop date: 06/11/15 17:19:00Notes: Do not exceed 4 gm/day. (Same as: Tylenol) No Longer Active 05/12/2015 [facility] Sodium Chloride 0.154 MEQ/ML Injectable Solution 1,000 mL, 1000 ml/hr, Infuse Over: 1 hr, Route: IV, 1,000, Drug form: INJ, ONCE, Priority: STAT, Dosing Weight 96.364 kg, Start date: 05/12/15 16:13:00, Duration: 1 doses or times, Stop date: 05/12/15 16:13:00 Inactive 05/12/2015 [facility] docusate sodium 100 mg oral capsule 100 mg=1 cap, PO, BID, 0 Refill(s) Active 11/06/2014 [facility] cadexomer iodine 0.009 MG/MG Topical Gel 1 appl, TOP, Daily, 0 Refill(s) Active 11/06/2014 [facility] amLODIPine 10 mg oral tablet 10 mg=1 tab, PO, Daily, # 30 tab, 2 Refill(s) Active 11/06/2014 [facility] acetaminophen 325 mg oral tablet 650 mg=2 tab, PO, Q4H, PRN Pain 1-3/Temp > 100.4 F, 0 Refill(s) Active 11/06/2014 [facility] Acetaminophen 325 MG / Hydrocodone Bitartrate 5 MG Oral Tablet 1 tab, PO, Q4H, PRN Pain Score 1-3, 0 Refill(s) Active 11/06/2014 [facility] Morphine 1 mg=0.5 mL, IVP, Q4H, PRN Pain Score 4-6, 0 Refill(s) Active 11/06/2014 [facility] ondansetron 2 mg/mL injectable solution 4 mg=2 mL, IVP, ONCE, PRN Nausea & Vomiting, 0 Refill(s) Active 11/06/2014 [facility] Sodium Chloride 0.154 MEQ/ML Inhalant Solution 0.09 gm=10 mL, IVP, PRN, PRN Line Flush, 0 Refill(s) Active 11/06/2014 [facility] Sodium Hypochlorite 2.5 MG/ML Topical Solution 1 appl, TOP, Daily, 0 Refill(s) Active 11/06/2014 [facility] Vancomycin IVPB, [id number], 0 Refill(s) Active 11/06/2014 [facility] metoprolol tartrate 25 mg oral tablet 25 mg=1 tab, PO, BID, # 60 tab, 2 Refill(s) Active 11/06/2014 [facility] Hydrochlorothiazide 25 MG Oral Tablet 25 mg=1 tab, PO, Daily, # 30 tab, 2 Refill(s) Active 11/06/2014 [facility] hydrALAZINE 20 mg/mL injectable solution 10 mg=0.5 mL, IVP, Q4H, PRN Hypertension, 0 Refill(s) Active 11/06/2014 [facility] Famotidine 20 MG Oral Tablet [Pepcid] 20 mg=1 tab, PO, Bedtime, # 30 tab, 2 Refill(s) Active 11/06/2014 [facility] Enoxaparin 40 mg=0.4 mL, SUB-Q, [id number], 0 Refill(s) Active 11/06/2014 [facility] Amikacin 1,500 mg, 6 mL, Route: IVPB, Drug form: INJ, [id number], Dosing Weight 103.864, kg, Start date: 11/06/14 9:00:00, Duration: 30 day, Stop date: 12/05/14 9:00:00Notes: (Same as: Amikin) MEDICATION WASTE Product Size: 500 mg Product Wasted: ___ mg Inactive 11/06/2014 [facility] Dakins Solution 1 appl, Route: TOP, Daily, Drug form: SOLN, 0.25%, Start date: 11/05/14 9:00:00, Duration: 30 day, Stop date: 12/04/14 9:00:00Notes: Note: half-strength=0.25% sodium hypochlorite. No Longer Active 11/05/2014 [facility] Sodium Chloride 0.154 MEQ/ML Injectable Solution 250 mL, 250 ml/hr, Infuse Over: 1 hr, Route: IV, 250, Drug form: INJ, ONCE, Priority: STAT, Dosing Weight 103.864 kg, Start date: 11/04/14 18:46:00, Duration: 1 doses or times, Stop date: 11/04/14 18:46:00 Inactive 11/04/2014 [facility] Norvasc 10 mg, 1 tab, Route: PO, Drug form: TAB, Daily, Dosing Weight 103.864, kg, Start date: 11/03/14 9:00:00, Duration: 30 day, Stop date: 12/02/14 9:00:00Notes: (Same as: Norvasc) No Longer Active 11/03/2014 [facility] Amikacin 1,000 mg, 4 mL, Route: IVPB, Drug form: INJ, [id number], Dosing Weight 103.864, kg, Start date: 11/03/14 8:00:00, Duration: 30 day, Stop date: 12/02/14 8:00:00Notes: (Same as: Amikin) MEDICATION WASTE Product Size: 500 mg Product Wasted: ___ mg No Longer Active 11/03/2014 [facility] Hydralazine 10 mg, 0.5 mL, Route: IVP, Drug form: INJ, Q4H, Dosing Weight 103.864, kg, PRN Hypertension, prn sbp >160 or dbp >90; hold for pulse >100, Start date: 11/02/14 15:50:00, Duration: 30 day, Stop date: 12/02/14 15:49:00Notes: (Same as: Apresoline) Push over 5 minutes No Longer Active 11/02/2014 [facility] Hydralazine 10 mg, 0.5 mL, Route: IVP, Drug form: INJ, Q4H, Dosing Weight 103.864, kg, PRN Hypertension, Start date: 11/02/14 11:18:00, Duration: 30 day, Stop date: 12/02/14 11:17:00, SBP > 160Notes: (Same as: A presoline) Push over 5 minutes Inactive 11/02/2014 [facility] Hydrochlorothiazide 25 mg, 1 tab, Route: PO, Drug form: TAB, Daily, Dosing Weight 103.864, kg, Start date: 11/02/14 9:00:00, Duration: 30 day, Stop date: 12/01/14 9:00:00Notes: (Same as: Hydrodiuril) With food. No Longer Active 11/02/2014 [facility] Amikacin 1,500 mg, 6 mL, Route: IVPB, Drug form: INJ, ONCE, Dosing Weight 103.864, kg, Start date: 10/31/14 19:44:00, Stop date: 10/31/14 19:44:00Notes: (Same as: Amikin) MEDICATION WASTE Product Size: 500 mg Product Wasted: ___ mg Inactive 11/01/2014 [facility] cadexomer-iodine topical 1 appl, Route: TOP, Daily, Drug form: GEL, Start date: 10/31/14 9:00:00, Duration: 30 day, Stop date: 11/29/14 9:00:00Notes: Non-Formulary Drug. For external use only. (Same As: Iodosorb) No Longer Active 10/31/2014 [facility] Amikacin 1,500 mg, 6 mL, Route: IVPB, Drug form: INJ, [id number], Dosing Weight 103.864, kg, Start date: 10/30/14 18:00:00, Duration: 30 day, Stop date: 11/28/14 18:00:00Notes: (Same as: Amikin) MEDICATION WASTE Product Size: 500 mg Product Wasted: _01__ mg No Longer Active 10/30/2014 [facility] Lopressor 25 mg, 1 tab, Route: PO, Drug form: TAB, BID, Start date: 10/30/14 13:00:00, Duration: 30 day, Stop date: 11/29/14 9:00:00Notes: (Same as: Lopressor) No Longer Active 10/30/2014 [facility] Magnesium Sulfate 2 gm, 50 mL, Route: IV, Drug form: INJ, ONCE, Dosing Weight 103.864, kg, Priority: Routine, Start date: 10/30/14 12:50:00, Stop date: 10/30/14 12:50:00 Inactive 10/30/2014 [facility] Omnipaque 300 100 mL, 100 ml/hr, Route: IV, Drug Form: SOLN, ONCALL, Start date: 10/30/14 10:00:00, Duration: 6 hr, Stop date: 10/30/14 15:59:00Notes: (Same as:Omnipaque 300). Inactive 10/30/2014 [facility] Docusate 100 mg, 1 cap, Route: PO, Drug form: CAP, BID, Dosing Weight 103.864, kg, Start date: 10/30/14 9:00:00, Duration: 30 day, Stop date: 11/28/14 17:00:00Notes: (Same as: Colace) (Do Not Crush) No Longer Active 10/30/2014 [facility] gabapentin 800 mg, 2 cap, Route: PO, Drug form: CAP, TID, Dosing Weight 103.864, kg, Start date: 10/30/14 9:00:00, Duration: 30 day, Stop date: 11/28/14 17:00:00Notes: (Same as: Neurontin) No Longer Active 10/30/2014 [facility] oxybutynin 10 mg, 2 tab, Route: PO, Drug form: TAB, BID, Dosing Weight 103.864, kg, Start date: 10/30/14 9:00:00, Duration: 30 day, Stop date: 11/28/14 17:00:00Notes: Same as: Ditropan) No Longer Active 10/30/2014 [facility] Zinc Sulfate 220 mg, 1 cap, Route: PO, Drug form: CAP, Daily, Dosing Weight 103.864, kg, Start date: 10/30/14 9:00:00, Duration: 30 day, Stop date: 11/28/14 9:00:00Notes: (Zinc sulfate capsule) - 220 mg Zinc sulf ate=50 mg elemental zinc Same as Zinc Sulfate No Longer Active 10/30/2014 [facility] Baclofen 10 mg, 1 tab, Route: PO, Drug form: TAB, TID, Dosing Weight 103.864, kg, Start date: 10/30/14 9:00:00, Duration: 30 day, Stop date: 11/28/14 17:00:00Notes: (Same As: Lioresal) No Longer Active 10/30/2014 [facility] ferrous sulfate 325 mg, 1 tab, Route: PO, Drug form: ECTAB, Daily, Dosing Weight 103.864, kg, Start date: 10/30/14 9:00:00, Duration: 30 day, Stop date: 11/28/14 9:00:00Notes: Give with food. "Do Not Crush" No Longer Active 10/30/2014 [facility] Maxipime + Sodium Chloride 0.9% IV 100 mL 1 gm, Route: IVPB, [id number], Start date: 10/29/14 22:00:00, Duration: 30 day, Stop date: 11/28/14 14:00:00Notes: (Same As: Maxipime) MEDICATION WASTE Product Size: 1000 mg Product Wasted: ___ mg No Longer Active 10/30/2014 [facility] Famotidine 20 MG Oral Tablet [Pepcid] 20 mg, 1 tab, Route: PO, Drug form: TAB, Bedtime, Dosing Weight 103.864, kg, Start date: 10/29/14 21:00:00, Duration: 30 day, Stop date: 11/27/14 21:00:00Notes: (Same as: Pepcid) No Longer Active 10/30/2014 [facility] cefepime 1 gm, Route: IVPB, [id number], Dosing Weight 103.864, kg, (CrCl 30 - 49 ml/min), Start date: 10/29/14 21:00:00, Duration: 30 day, Stop date: 11/28/14 9:00:00 Inactive 10/30/2014 [facility] Saline Flush 0.9% 10 ml, Route: IVP, Drug Form: INJ, Dosing Weight 103.864, kg, PRN, PRN Line Flush, Start date: 10/29/14 20:49:00, Duration: 30 day, Stop date: 11/28/14 20:48:00Notes: Same as: BD Posiflush Sterile No Longer Active 10/30/2014 [facility] Ondansetron 4 mg, 2 mL, Route: IVP, Drug form: INJ, ONCE, Dosing Weight 103.864, kg, PRN Nausea & Vomiting, Start date: 10/29/14 20:49:00Notes: (Same as: Zofran) MEDICATION WASTE Product Size: 4 mg Product Wasted: ___ mg No Longer Active 10/30/2014 [facility] Morphine 1 mg, 0.5 mL, Route: IVP, Drug form: INJ, Q4H, Dosing Weight 103.864, kg, PRN Pain Score 4-6, Start date: 10/29/14 20:49:00, Duration: 30 day, Stop date: 11/28/14 20:48:00Notes: (Same as:MORPhine Sulfate) No Longer Active 10/30/2014 [facility] Acetaminophen 650 mg, 2 tab, Route: PO, Drug form: TAB, Q4H, Dosing Weight 103.864, kg, PRN Pain 1-3/Temp > 100.4 F, Start date: 10/29/14 20:49:00, Duration: 30 day, Stop date: 11/28/14 20:48:00Notes: Do not exceed 4 gm/day. (Same as: Tylenol) No Longer Active 10/30/2014 [facility] Acetaminophen 325 MG / Hydrocodone Bitartrate 5 MG Oral Tablet 1 tab, Route: PO, Drug Form: TAB, Dosing Weight 103.864, kg, Q4H, PRN Pain Score 1-3, Start date: 10/29/14 20:49:00, Duration: 30 day, Stop date: 11/28/14 20:48:00Notes: (Same as: [place] 325/5) Do not exceed 4gm/day of acetaminophen. No Longer Active 10/30/2014 [facility] Enoxaparin 40 mg, 0.4 mL, Route: SUB-Q, Drug form: INJ, [id number], Dosing Weight 103.864, kg, Start date: 10/29/14 20:00:00, Duration: 30 day, Stop date: 11/27/14 20:00:00Notes: (Same as: Lovenox) No Longer Active 10/30/2014 [facility] vancomycin 1 gm, 200 mL, Route: IVPB, Drug form: INJ, [id number], Start date: 10/29/14 19:00:00, Duration: 30 day, Stop date: 11/28/14 7:00:00 No Longer Active 10/30/2014 [facility] Zinc 1 tablet, PO, Daily, 0 Refill(s) Active 10/29/2014 [facility] Omnipaque 300 100 mL, Route: IVP, Drug Form: YUE ARTIS, Start date: 02/25/14 13:00:00, Duration: 2 hr, Stop date: 02/25/14 14:59:00Notes: (Same as:Omnipaque 300). Inactive 02/25/2014 [facility] Esomeprazole 40 MG Enteric Coated Capsule [Nexium] 40 mg=1 cap, PO, Daily, # 30 cap, 0 Refill(s), given to patient Active 10/16/2013 [facility] ferrous sulfate 325 MG Oral Tablet 325 mg=1 tab, PO, Daily, 0 Refill(s) Active 10/15/2013 [facility] Omnipaque 300 100 mL, 200 ml/hr, Route: IV, Drug Form: LUIS [id number], Start date: 08/21/13 16:00:00, Duration: 30 day, Stop date: 09/20/13 15:59:00(Same as:Omnipaque 300). Inactive Denys 08/21/2013 [facility] Baclofen 10 Mg Tablet Twice A Day Active [facility] Ferrous Sulfate 325 Mg Tablet Daily Active [facility] Gabapentin 400 Mg Capsule Twice A Day Active [facility] Hydrocodone Bit/Acetaminophen ([place] 10-325 Tablet) 1 Each Tablet Four Times Daily as needed for Pain Active [facility] Oxybutynin Chloride 5 Mg Tablet Daily Active [facility] Vit C Daily Active [facility] Vit E Daily Active [facility] Zinc Sulfate 220 Mg Tablet Daily Active [facility] Allergies, Adverse Reactions, Alerts Substance Category Reaction Severity Reaction type Status Date Reported Comments Source No Known Medication Allergies Assertion Drug allergy [facility] Immunizations Immunization Date Given Site Status Last Updated Comments Source influenza virus vaccine, inactivated 05/13/2015 Not Given [facility], [facility] pneumococcal 23-valent vaccine 10/30/2014 Left deltoid completed Robert [facility], [facility] Results Order Name Results Value Reference Range Date Interpretation Comments Source CHEM PANEL eGFR 127 02/01/2019 Result Comment: The eGFR is calculated using the CKD-EPI formula. In most young, healthy individuals the eGFR will be >90 mL/min/1.73m2. The eGFR declines with age. An eGFR of 60-89 may be normal in some populations, particularly the elderly, for whom the CKD-EPI formula has not been extensively validated. Use of the eGFR is not recommended in the following populations:

Individuals with unstable creatinine concentrations, including patients and those with serious co-morbid conditions.

Patients with extremes in muscle mass or diet.

The data above are obtained from the National Kidney Disease Education Program (NKDEP) which additionally recommends that when the eGFR is used in patients with extremes of body mass index for purposes of drug dosing, the eGFR should be multiplied by the estimated BMI. [facility] CHEM PANEL Calcium Lvl 8.2 8.5 - 10.5 02/01/2019 [facility] CHEM PANEL CO2 32 24 - 32 02/01/2019 [facility] CHEM PANEL Chloride Lvl 110 95 - 109 02/01/2019 [facility] CHEM PANEL Potassium Lvl 4.4 3.5 - 5.1 02/01/2019 [facility] CHEM PANEL Creatinine Lvl 0.61 0.50 - 1.40 02/01/2019 [facility] CHEM PANEL BUN 6 7 - 22 02/01/2019 [facility] CHEM PANEL Sodium Lvl 146 135 - 145 02/01/2019 [facility] CHEM PANEL Glucose Lvl 86 70 - 99 02/01/2019 [facility] CHEM PANEL AGAP 8.4 10.0 - 20.0 02/01/2019 [facility] HEMATOLOGY Basophils 0.8 0.0 - 1.0 02/01/2019 [facility] HEMATOLOGY Neutrophils # 3.1 1.5 - 8.1 02/01/2019 [facility] HEMATOLOGY Monocytes # 0.4 0.0 - 0.8 02/01/2019 [facility] HEMATOLOGY Lymphocytes # 1.5 1.0 - 5.5 02/01/2019 [facility] HEMATOLOGY Eosinophils # 0.2 0.0 - 0.5 02/01/2019 [facility] HEMATOLOGY Segs 58.4 45.0 - 75.0 02/01/2019 [facility] HEMATOLOGY Monocytes 8.3 2.0 - 12.0 02/01/2019 [facility] HEMATOLOGY Lymphocytes 28.1 20.0 - 40.0 02/01/2019 [facility] HEMATOLOGY Eosinophils 4.4 0.0 - 4.0 02/01/2019 [facility] HEMATOLOGY MCHC 31.8 32.0 - 36.0 02/01/2019 [facility] HEMATOLOGY RDW 18.4 11.5 - 14.5 02/01/2019 [facility] HEMATOLOGY Platelet 293 133 - 450 02/01/2019 [facility] HEMATOLOGY Hct 26.3 42.0 - 54.0 02/01/2019 [facility] HEMATOLOGY Hgb 8.4 14.0 - 18.0 02/01/2019 [facility] HEMATOLOGY MCV 81.6 80.0 - 94.0 02/01/2019 [facility] HEMATOLOGY MCH 26.0 27.0 - 31.0 02/01/2019 [facility] HEMATOLOGY MPV 8.9 7.4 - 10.4 02/01/2019 [facility] HEMATOLOGY WBC 5.4 3.7 - 10.4 02/01/2019 [facility] HEMATOLOGY RBC 3.22 4.70 - 6.10 02/01/2019 [facility] CHEM PANEL B/C Ratio 15 6 - 25 01/30/2019 [facility] CHEM PANEL AGAP 12.2 10.0 - 20.0 01/30/2019 [facility] CHEM PANEL Globulin 4.5 2.7 - 4.2 01/30/2019 [facility] CHEM PANEL A/G Ratio 0.5 0.7 - 1.6 01/30/2019 [facility] CHEM PANEL eGFR 133 01/30/2019 Result Comment: The eGFR is calculated using the CKD-EPI formula. In most young, healthy individuals the eGFR will be >90 mL/min/1.73m2. The eGFR declines with age. An eGFR of 60-89 may be normal in some populations, particularly the elderly, for whom the CKD-EPI formula has not been extensively validated. Use of the eGFR is not recommended in the following populations:

Individuals with unstable creatinine concentrations, including patients and those with serious co-morbid conditions.

Patients with extremes in muscle mass or diet.

The data above are obtained from the National Kidney Disease Education Program (NKDEP) which additionally recommends that when the eGFR is used in patients with extremes of body mass index for purposes of drug dosing, the eGFR should be multiplied by the estimated BMI. [facility] CHEM PANEL CO2 27 24 - 32 01/30/2019 [facility] CHEM PANEL Calcium Lvl 8.7 8.5 - 10.5 01/30/2019 [facility] CHEM PANEL Glucose Lvl 71 70 - 99 01/30/2019 [facility] CHEM PANEL Creatinine Lvl 0.55 0.50 - 1.40 01/30/2019 [facility] CHEM PANEL BUN 8 7 - 22 01/30/2019 [facility] CHEM PANEL Sodium Lvl 141 135 - 145 01/30/2019 [facility] CHEM PANEL Potassium Lvl 4.2 3.5 - 5.1 01/30/2019 [facility] CHEM PANEL Chloride Lvl 106 95 - 109 01/30/2019 [facility] CHEM PANEL Bili Total 0.2 0.2 - 1.3 01/30/2019 [facility] CHEM PANEL Alk Phos 65 39 - 136 01/30/2019 [facility] CHEM PANEL Albumin Lvl 2.4 3.5 - 5.0 01/30/2019 [facility] CHEM PANEL Total Protein 6.9 6.4 - 8.4 01/30/2019 [facility] CHEM PANEL AST 12 0 - 37 01/30/2019 [facility] CHEM PANEL ALT 8 0 - 65 01/30/2019 [facility] HEMATOLOGY MCH 25.8 27.0 - 31.0 01/30/2019 [facility] HEMATOLOGY Hct 29.5 42.0 - 54.0 01/30/2019 [facility] HEMATOLOGY MCHC 31.1 32.0 - 36.0 01/30/2019 [facility] HEMATOLOGY RDW 17.9 11.5 - 14.5 01/30/2019 [facility] HEMATOLOGY MCV 83.1 80.0 - 94.0 01/30/2019 [facility] HEMATOLOGY MPV 9.2 7.4 - 10.4 01/30/2019 [facility] HEMATOLOGY Platelet 334 133 - 450 01/30/2019 [facility] HEMATOLOGY Hgb 9.2 14.0 - 18.0 01/30/2019 [facility] HEMATOLOGY WBC 5.9 3.7 - 10.4 01/30/2019 [facility] HEMATOLOGY RBC 3.55 4.70 - 6.10 01/30/2019 [facility] HEMATOLOGY Basophils 1.3 0.0 - 1.0 01/30/2019 [facility] HEMATOLOGY Eosinophils 3.2 0.0 - 4.0 01/30/2019 [facility] HEMATOLOGY Segs 65.3 45.0 - 75.0 01/30/2019 [facility] HEMATOLOGY Neutrophils # 3.9 1.5 - 8.1 01/30/2019 [facility] HEMATOLOGY Basophils # 0.1 0.0 - 0.2 01/30/2019 [facility] HEMATOLOGY Monocytes 7.5 2.0 - 12.0 01/30/2019 [facility] HEMATOLOGY Lymphocytes 22.7 20.0 - 40.0 01/30/2019 [facility] HEMATOLOGY Lymphocytes # 1.3 1.0 - 5.5 01/30/2019 [facility] HEMATOLOGY Eosinophils # 0.2 0.0 - 0.5 01/30/2019 [facility] HEMATOLOGY Monocytes # 0.4 0.0 - 0.8 01/30/2019 [facility] CHEM PANEL Phosphorus 3.0 2.5 - 4.5 01/29/2019 [facility] CHEM PANEL eGFR 124 01/29/2019 Result Comment: The eGFR is calculated using the CKD-EPI formula. In most young, healthy individuals the eGFR will be >90 mL/min/1.73m2. The eGFR declines with age. An eGFR of 60-89 may be normal in some populations, particularly the elderly, for whom the CKD-EPI formula has not been extensively validated. Use of the eGFR is not recommended in the following populations:

Individuals with unstable creatinine concentrations, including patients and those with serious co-morbid conditions.

Patients with extremes in muscle mass or diet.

The data above are obtained from the National Kidney Disease Education Program (NKDEP) which additionally recommends that when the eGFR is used in patients with extremes of body mass index for purposes of drug dosing, the eGFR should be multiplied by the estimated BMI. [facility] CHEM PANEL CO2 25 24 - 32 01/29/2019 [facility] CHEM PANEL Calcium Lvl 8.7 8.5 - 10.5 01/29/2019 [facility] CHEM PANEL Potassium Lvl 4.5 3.5 - 5.1 01/29/2019 [facility] CHEM PANEL Chloride Lvl 107 95 - 109 01/29/2019 [facility] CHEM PANEL Creatinine Lvl 0.64 0.50 - 1.40 01/29/2019 [facility] CHEM PANEL Sodium Lvl 141 135 - 145 01/29/2019 [facility] CHEM PANEL Glucose Lvl 92 70 - 99 01/29/2019 [facility] CHEM PANEL BUN 12 7 - 22 01/29/2019 [facility] CHEM PANEL AGAP 13.5 10.0 - 20.0 01/29/2019 [facility] HEMATOLOGY Monocytes # 0.5 0.0 - 0.8 01/29/2019 [facility] HEMATOLOGY Basophils # 0.1 0.0 - 0.2 01/29/2019 [facility] HEMATOLOGY Monocytes 5.5 2.0 - 12.0 01/29/2019 [facility] HEMATOLOGY Segs 81.5 45.0 - 75.0 01/29/2019 [facility] HEMATOLOGY Lymphocytes 11.6 20.0 - 40.0 01/29/2019 [facility] HEMATOLOGY Neutrophils # 8.0 1.5 - 8.1 01/29/2019 [facility] HEMATOLOGY Lymphocytes # 1.1 1.0 - 5.5 01/29/2019 [facility] HEMATOLOGY Basophils 1.0 0.0 - 1.0 01/29/2019 [facility] HEMATOLOGY Eosinophils 0.4 0.0 - 4.0 01/29/2019 [facility] HEMATOLOGY RBC 3.74 4.70 - 6.10 01/29/2019 [facility] HEMATOLOGY WBC 9.8 3.7 - 10.4 01/29/2019 [facility] HEMATOLOGY MCH 26.1 27.0 - 31.0 01/29/2019 [facility] HEMATOLOGY MCHC 32.1 32.0 - 36.0 01/29/2019 [facility] HEMATOLOGY Hct 30.4 42.0 - 54.0 01/29/2019 [facility] HEMATOLOGY Hgb 9.8 14.0 - 18.0 01/29/2019 [facility] HEMATOLOGY MCV 81.3 80.0 - 94.0 01/29/2019 [facility] HEMATOLOGY RDW 18.0 11.5 - 14.5 01/29/2019 [facility] HEMATOLOGY Platelet 392 133 - 450 01/29/2019 [facility] HEMATOLOGY MPV 9.1 7.4 - 10.4 01/29/2019 [facility] BLOOD BANK RESULTS ABO/Rh O POS 01/24/2019 [facility] BLOOD BANK RESULTS Antibody Scrn Negative (01/24/19 3:57 PM) 01/24/2019 [facility] HEMATOLOGY Eosinophils # 0.2 0.0 - 0.5 01/24/2019 [facility] HEMATOLOGY Basophils # 0.1 0.0 - 0.2 01/24/2019 [facility] CHEM PANEL eGFR 117 12/14/2018 Result Comment: The eGFR is calculated using the CKD-EPI formula. In most young, healthy individuals the eGFR will be >90 mL/min/1.73m2. The eGFR declines with age. An eGFR of 60-89 may be normal in some populations, particularly the elderly, for whom the CKD-EPI formula has not been extensively validated. Use of the eGFR is not recommended in the following populations:

Individuals with unstable creatinine concentrations, including patients and those with serious co-morbid conditions.

Patients with extremes in muscle mass or diet.

The data above are obtained from the National Kidney Disease Education Program (NKDEP) which additionally recommends that when the eGFR is used in patients with extremes of body mass index for purposes of drug dosing, the eGFR should be multiplied by the estimated BMI. [facility] CHEM PANEL CO2 30 24 - 32 12/14/2018 [facility] CHEM PANEL Calcium Lvl 8.6 8.5 - 10.5 12/14/2018 [facility] CHEM PANEL Sodium Lvl 141 135 - 145 12/14/2018 [facility] CHEM PANEL Potassium Lvl 4.3 3.5 - 5.1 12/14/2018 [facility] CHEM PANEL BUN 11 7 - 22 12/14/2018 [facility] CHEM PANEL Creatinine Lvl 0.74 0.50 - 1.40 12/14/2018 [facility] CHEM PANEL Chloride Lvl 105 95 - 109 12/14/2018 [facility] CHEM PANEL Glucose Lvl 111 70 - 99 12/14/2018 [facility] CHEM PANEL AGAP 10.3 10.0 - 20.0 12/14/2018 [facility] HEMATOLOGY Monocytes # 0.4 0.0 - 0.8 12/14/2018 [facility] HEMATOLOGY Lymphocytes # 1.7 1.0 - 5.5 12/14/2018 [facility] HEMATOLOGY Basophils 0.2 0.0 - 1.0 12/14/2018 [facility] HEMATOLOGY Neutrophils # 3.7 1.5 - 8.1 12/14/2018 [facility] HEMATOLOGY Eosinophils # 0.4 0.0 - 0.5 12/14/2018 [facility] HEMATOLOGY Lymphocytes 27.1 20.0 - 40.0 12/14/2018 [facility] HEMATOLOGY Eosinophils 6.8 0.0 - 4.0 12/14/2018 [facility] HEMATOLOGY Monocytes 6.9 2.0 - 12.0 12/14/2018 [facility] HEMATOLOGY Segs 59.0 45.0 - 75.0 12/14/2018 [facility] MCHC 31.8 32.0 - 36.0 12/14/2018 [facility] MCH 25.6 27.0 - 31.0 12/14/2018 [facility] HEMATOLOGY MCV 80.6 80.0 - 94.0 12/14/2018 [facility] HEMATOLOGY MPV 8.7 7.4 - 10.4 12/14/2018 [facility] HEMATOLOGY RDW 18.1 11.5 - 14.5 12/14/2018 [facility] HEMATOLOGY Platelet 421 133 - 450 12/14/2018 [facility] Hgb 9.7 14.0 - 18.0 12/14/2018 [facility] Hct 30.5 42.0 - 54.0 12/14/2018 [facility] RBC 3.79 4.70 - 6.10 12/14/2018 [facility] HEMATOLOGY WBC 6.3 3.7 - 10.4 12/14/2018 [facility] URINE AND STOOL UA Urobilinogen <=1.0 mg/dL 0.1 - 1.0 12/14/2018 [facility] URINE AND STOOL UA Blood Small *ABN* (12/13/18 9:03 PM) Negative 12/14/2018 [facility] URINE AND STOOL UA Spec Grav 1.010 <=1.030 12/14/2018 [facility] URINE AND STOOL UA Turbidity Marked *ABN* (12/13/18 9:03 PM) Clear 12/14/2018 [facility] URINE AND STOOL UA Color Yellow *NA* (12/13/18 9:03 PM) Yellow 12/14/2018 [facility] URINE AND STOOL UA Bili Negative *NA* (12/13/18 9:03 PM) Negative 12/14/2018 [facility] URINE AND STOOL UA Ketones Negative *NA* (12/13/18 9:03 PM) Negative 12/14/2018 [facility] URINE AND STOOL UA Glucose Negative *NA* (12/13/18 9:03 PM) Negative 12/14/2018 [facility] URINE AND STOOL UA Nitrite Positive *ABN* (12/13/18 9:03 PM) Negative 12/14/2018 [facility] URINE AND STOOL UA Protein Negative (12/13/18 9:03 PM) Negative 12/14/2018 [facility] URINE AND STOOL UA pH 5.0 5.0 - 8.0 12/14/2018 [facility] URINE AND STOOL UA Leuk Est Large *ABN* (12/13/18 9:03 PM) Negative 12/14/2018 [facility] URINE AND STOOL UA Mucus Few /LPF None Seen /LPF 12/14/2018 [facility] URINE AND STOOL UA Bacteria Few /HPF None Seen /HPF 12/14/2018 [facility] URINE AND STOOL UA RBC 26 0 - 2 12/14/2018 [facility] URINE AND STOOL UA Sq Epi Occasional /LPF Few /LPF 12/14/2018 [facility] URINE AND STOOL UA WBC >182 0 - 5 12/14/2018 [facility] Culture: Urine Holding For Better Growth 12/14/2018 [facility] Blood leukocytes automated count (number/volume) 6.34 4.8 - 10.8 11/19/2018 [facility] Blood erythrocytes automated count (number/volume) 3.72 4.3 - 5.7 11/19/2018 [facility] Blood hemoglobin measurement (moles/volume) 9.7 14.0 - 18.0 11/19/2018 [facility] Automated blood hematocrit (volume fraction) 32.1 38.2 - 49.6 11/19/2018 [facility] Automated erythrocyte mean corpuscular volume 86.3 81 - 99 11/19/2018 [facility] Automated erythrocyte mean corpuscular hemoglobin (mass per erythrocyte) 26.1 28 - 32 11/19/2018 [facility] Automated erythrocyte mean corpuscular hemoglobin concentration measurement (mass/volume) 30.2 31 - 35 11/19/2018 [facility] RDW BldCo-Rto 18.5 11.7 - 14.4 11/19/2018 [facility] Automated blood platelet count (count/volume) 357 140 - 360 11/19/2018 [facility] Automated blood segmented neutrophil count as percentage of total leukocytes 65.9 38.7 - 80.0 11/19/2018 [facility] Automated blood lymphocyte count as percentage ot total leukocytes 20.2 18.0 - 39.1 11/19/2018 [facility] Automated blood monocyte count as percentage of total leukocytes 7.9 4.4 - 11.3 11/19/2018 [facility] Automated blood eosinophil count as percentage of total leukocytes 5.2 0.0 - 6.0 11/19/2018 [facility] Automated blood basophil count as percentage of total leukocytes 0.5 0.0 - 1.0 11/19/2018 [facility] IM GRANULOCYTES % 0.3 0.0 - 1.0 11/19/2018 [facility] Automated blood neutrophil count 4.2 2.1 - 6.9 11/19/2018 [facility] Blood lymphocytes count (number/volume) 1.3 1.0 - 3.2 11/19/2018 [facility] Blood monocytes automated count (number/volume) 0.5 0.2 - 0.8 11/19/2018 [facility] Automated blood eosinophil count 0.3 0.0 - 0.4 11/19/2018 [facility] Automated blood basophil count (count/volume) 0.0 0.0 - 0.1 11/19/2018 [facility] Absolute Immature Granulocyte (auto 0.02 0 - 0.1 11/19/2018 [facility] Erythrocyte sedimentation rate by Westergren method 99 0 - 13 11/19/2018 [facility] Serum or plasma sodium measurement (moles/volume) 140 136 - 145 11/19/2018 [facility] Serum or plasma potassium measurement (moles/volume) 3.8 3.5 - 5.1 11/19/2018 [facility] Serum or plasma chloride measurement (moles/volume) 104 98 - 107 11/19/2018 [facility] Serum or plasma carbon dioxide, total measurement (moles/volume) 28 22 - 29 11/19/2018 [facility] Serum or plasma anion gap 11.8 8 - 16 11/19/2018 [facility] Serum or plasma urea nitrogen measurement (mass/volume) 11 7 - 26 11/19/2018 [facility] Serum or plasma creatinine measurement (mass/volume) 0.69 0.72 - 1.25 11/19/2018 [facility] Serum or plasma urea nitrogen/creatinine mass ratio 16 6 - 25 11/19/2018 [facility] Estimated glomerular filtration rate (GFR) determination > 60 60 11/19/2018 [facility] Glucose measurement 78 74 - 118 11/19/2018 [facility] Serum or plasma calcium measurement (mass/volume) 9.7 8.4 - 10.2 11/19/2018 [facility] Serum or plasma total bilirubin measurement (mass/volume) 0.6 0.2 - 1.2 11/19/2018 [facility] Aspartate Amino Transf (AST/SGOT) 12 5 - 34 11/19/2018 [facility] Serum or plasma alanine aminotransferase measurement (enzymatic activity/volume) 9 0 - 55 11/19/2018 [facility] Serum or plasma protein measurement (mass/volume) 7.5 6.5 - 8.1 11/19/2018 [facility] Serum or plasma albumin measurement (mass/volume) 2.8 3.5 - 5.0 11/19/2018 [facility] Plasma globulin measurement (mass/volume) 4.7 2.3 - 3.5 11/19/2018 [facility] Serum or plasma albumin/globulin mass ratio 0.6 0.8 - 2.0 11/19/2018 [facility] Serum or plasma alkaline phosphatase measurement (enzymatic activity/volume) 80 40 - 150 11/19/2018 [facility] Serum or plasma prealbumin measurement (mass/volume) 14 10 - 36 11/19/2018 [facility] Bacteria identification in wound by culture Organism: ENTEROBACTER CLOACAE 09/17/2018 [facility] Bacteria identification in wound by culture Organism: PSEUDOMONAS AERUGINOSA 09/17/2018 [facility] Blood leukocytes automated count (number/volume) 7.45 4.8 - 10.8 05/17/2018 [facility] Blood erythrocytes automated count (number/volume) 3.75 4.3 - 5.7 05/17/2018 [facility] Blood hemoglobin measurement (moles/volume) 9.8 14.0 - 18.0 05/17/2018 [facility] Automated blood hematocrit (volume fraction) 33.1 38.2 - 49.6 05/17/2018 [facility] Automated erythrocyte mean corpuscular volume 88.3 81 - 99 05/17/2018 [facility] Automated erythrocyte mean corpuscular hemoglobin (mass per erythrocyte) 26.1 28 - 32 05/17/2018 [facility] Automated erythrocyte mean corpuscular hemoglobin concentration measurement (mass/volume) 29.6 31 - 35 05/17/2018 [facility] RDW BldCo-Rto 17.2 11.7 - 14.4 05/17/2018 [facility] Automated blood platelet count (count/volume) 336 140 - 360 05/17/2018 [facility] Automated blood segmented neutrophil count as percentage of total leukocytes 58.8 38.7 - 80.0 05/17/2018 [facility] Automated blood lymphocyte count as percentage ot total leukocytes 22.8 18.0 - 39.1 05/17/2018 [facility] Automated blood monocyte count as percentage of total leukocytes 11.0 4.4 - 11.3 05/17/2018 [facility] Automated blood eosinophil count as percentage of total leukocytes 6.2 0.0 - 6.0 05/17/2018 [facility] Automated blood basophil count as percentage of total leukocytes 0.8 0.0 - 1.0 05/17/2018 [facility] IM GRANULOCYTES % 0.4 0.0 - 1.0 05/17/2018 [facility] Automated blood neutrophil count 4.4 2.1 - 6.9 05/17/2018 [facility] Blood lymphocytes count (number/volume) 1.7 1.0 - 3.2 05/17/2018 [facility] Blood monocytes automated count (number/volume) 0.8 0.2 - 0.8 05/17/2018 [facility] Automated blood eosinophil count 0.5 0.0 - 0.4 05/17/2018 [facility] Automated blood basophil count (count/volume) 0.1 0.0 - 0.1 05/17/2018 [facility] Absolute Immature Granulocyte (auto 0.03 0 - 0.1 05/17/2018 [facility] Serum or plasma sodium measurement (moles/volume) 144 136 - 145 05/17/2018 [facility] Serum or plasma potassium measurement (moles/volume) 3.9 3.5 - 5.1 05/17/2018 [facility] Serum or plasma chloride measurement (moles/volume) 106 98 - 107 05/17/2018 [facility] Serum or plasma carbon dioxide, total measurement (moles/volume) 28 22 - 29 05/17/2018 [facility] Serum or plasma anion gap 13.9 8 - 16 05/17/2018 [facility] Serum or plasma urea nitrogen measurement (mass/volume) 14 7 - 26 05/17/2018 [facility] Serum or plasma creatinine measurement (mass/volume) 0.70 0.72 - 1.25 05/17/2018 [facility] Serum or plasma urea nitrogen/creatinine mass ratio 20 6 - 25 05/17/2018 [facility] Estimated glomerular filtration rate (GFR) determination > 60 60 05/17/2018 [facility] Glucose measurement 79 74 - 118 05/17/2018 [facility] Serum or plasma calcium measurement (mass/volume) 9.3 8.4 - 10.2 05/17/2018 [facility] Serum or plasma total bilirubin measurement (mass/volume) 0.6 0.2 - 1.2 05/17/2018 [facility] Aspartate Amino Transf (AST/SGOT) 9 5 - 34 05/17/2018 [facility] Serum or plasma alanine aminotransferase measurement (enzymatic activity/volume) 8 0 - 55 05/17/2018 [facility] Serum or plasma protein measurement (mass/volume) 7.4 6.5 - 8.1 05/17/2018 [facility] Serum or plasma albumin measurement (mass/volume) 3.0 3.5 - 5.0 05/17/2018 [facility] Plasma globulin measurement (mass/volume) 4.4 2.3 - 3.5 05/17/2018 [facility] Serum or plasma albumin/globulin mass ratio 0.7 0.8 - 2.0 05/17/2018 [facility] Serum or plasma alkaline phosphatase measurement (enzymatic activity/volume) 85 40 - 150 05/17/2018 [facility] Serum or plasma prealbumin measurement (mass/volume) 15 10 - 36 05/17/2018 [facility] CHEM PANEL Lactic Acid Lvl 1.8 0.5 - 2.2 01/07/2018 [facility] ELECTROLYTES AGAP 13.1 10.0 - 20.0 01/07/2018 [facility] ELECTROLYTES eGFR 115 01/07/2018 Result Comment: The eGFR is calculated using the CKD-EPI formula. In most young, healthy individuals the eGFR will be >90 mL/min/1.73m2. The eGFR declines with age. An eGFR of 60-89 may be normal in some populations, particularly the elderly, for whom the CKD-EPI formula has not been extensively validated. Use of the eGFR is not recommended in the following populations:

Individuals with unstable creatinine concentrations, including patients and those with serious co-morbid conditions.

Patients with extremes in muscle mass or diet.

The data above are obtained from the National Kidney Disease Education Program (NKDEP) which additionally recommends that when the eGFR is used in patients with extremes of body mass index for purposes of drug dosing, the eGFR should be multiplied by the estimated BMI. [facility] ELECTROLYTES Glucose Lvl 111 70 - 99 01/07/2018 [facility] ELECTROLYTES BUN 14 7 - 22 01/07/2018 [facility] ELECTROLYTES Creatinine Lvl 0.79 0.50 - 1.40 01/07/2018 [facility] ELECTROLYTES Calcium Lvl 8.2 8.5 - 10.5 01/07/2018 [facility] ELECTROLYTES CO2 25 24 - 32 01/07/2018 [facility] ELECTROLYTES Chloride Lvl 110 95 - 109 01/07/2018 [facility] ELECTROLYTES Potassium Lvl 4.1 3.5 - 5.1 01/07/2018 [facility] ELECTROLYTES Sodium Lvl 144 135 - 145 01/07/2018 [facility] HEMATOLOGY RBC 3.58 4.70 - 6.10 01/07/2018 [facility] WBC 9.3 3.7 - 10.4 01/07/2018 [facility] Hct 31.1 42.0 - 54.0 01/07/2018 [facility] Hgb 10.1 14.0 - 18.0 01/07/2018 [facility] MCV 86.8 80.0 - 94.0 01/07/2018 [facility] MCH 28.3 27.0 - 31.0 01/07/2018 [facility] RDW 16.1 11.5 - 14.5 01/07/2018 [facility] MCHC 32.6 32.0 - 36.0 01/07/2018 [facility] MPV 9.6 7.4 - 10.4 01/07/2018 [facility] Platelet 293 133 - 450 01/07/2018 [facility] HEMATOLOGY Segs-Bands # 7.4 1.5 - 8.1 01/07/2018 [facility] HEMATOLOGY Monocytes # 0.8 0.0 - 0.8 01/07/2018 [facility] HEMATOLOGY Eosinophils # 0.3 0.0 - 0.5 01/07/2018 [facility] HEMATOLOGY Segs 79.7 45.0 - 75.0 01/07/2018 [facility] HEMATOLOGY Lymphocytes 8.7 20.0 - 40.0 01/07/2018 [facility] HEMATOLOGY Monocytes 8.5 2.0 - 12.0 01/07/2018 [facility] HEMATOLOGY Eosinophils 2.8 0.0 - 4.0 01/07/2018 [facility] HEMATOLOGY Basophils 0.3 0.0 - 1.0 01/07/2018 [facility] HEMATOLOGY Lymphocytes # 0.8 1.0 - 5.5 01/07/2018 [facility] Culture: Urine Specimen contains 3 or more potential pathogens; recommend correlation with urinalysis; if catheterized specimen recommend removal and recollection. If clinical situation warrants please call the laboratory for further testing. [place] Microbiology [phone]. 01/06/2018 [facility] URINE AND STOOL UA Urobilinogen <=1.0 mg/dL 0.1 - 1.0 01/06/2018 [facility] URINE AND STOOL UA WBC >182 0 - 5 01/06/2018 [facility] URINE AND STOOL UA Sq Epi Occasional /LPF Few /LPF 01/06/2018 [facility] URINE AND STOOL UA Leuk Est Large *ABN* (01/06/18 12:13 AM) Negative 01/06/2018 [facility] URINE AND STOOL UA Bacteria Many /HPF None Seen /HPF 01/06/2018 [facility] URINE AND STOOL UA RBC 33 0 - 2 01/06/2018 [facility] URINE AND STOOL UA Blood Moderate *ABN* (01/06/18 12:13 AM) Negative 01/06/2018 [facility] URINE AND STOOL UA Bili Negative *NA* (01/06/18 12:13 AM) Negative 01/06/2018 [facility] URINE AND STOOL UA Nitrite Negative (01/06/18 12:13 AM) Negative 01/06/2018 [facility] URINE AND STOOL UA Hyal Cast 24 0 - 2 01/06/2018 [facility] URINE AND STOOL UA Mucus Few /LPF None Seen /LPF 01/06/2018 [facility] URINE AND STOOL UA Amorph Raquel Few /HPF None Seen /HPF 01/06/2018 [facility] URINE AND STOOL UA Ketones Trace mg/dL Negative mg/dL 01/06/2018 [facility] URINE AND STOOL UA Turbidity Marked *ABN* (01/06/18 12:13 AM) Clear 01/06/2018 [facility] URINE AND STOOL UA Color Yellow *NA* (01/06/18 12:13 AM) Yellow 01/06/2018 [facility] URINE AND STOOL UA Protein 100 mg/dL Negative mg/dL 01/06/2018 [facility] URINE AND STOOL UA pH 6.0 5.0 - 8.0 01/06/2018 [facility] URINE AND STOOL UA Glucose Negative mg/dL Negative mg/dL 01/06/2018 [facility] URINE AND STOOL UA Spec Grav 1.006 <=1.030 01/06/2018 [facility] CARDIAC ENZYMES CK MB Index 0.3 0.0 - 2.5 01/06/2018 [facility] [place]IAC [place] 2757 12 - 191 01/06/2018 [facility] CARDIAC ENZYMES Troponin-I 0.07 0.00 - 0.40 01/06/2018 [facility] CARDIAC ENZYMES CK MB 8.3 0.5 - 3.6 01/06/2018 [facility] CHEM PANEL Procalcitonin Lvl 1.33 0.00 - 0.10 01/06/2018 [facility] CHEM PANEL Lactic Acid Lvl 1.0 0.5 - 2.2 01/06/2018 [facility] ELECTROLYTES AGAP 13.8 10.0 - 20.0 01/06/2018 [facility] ELECTROLYTES Globulin 5.1 2.7 - 4.2 01/06/2018 [facility] ELECTROLYTES B/C Ratio 16 6 - 25 01/06/2018 [facility] ELECTROLYTES A/G Ratio 0.6 0.7 - 1.6 01/06/2018 [facility] ELECTROLYTES Bili Total 1.3 0.2 - 1.3 01/06/2018 [facility] ELECTROLYTES eGFR 80 01/06/2018 Result Comment: The eGFR is calculated using the CKD-EPI formula. In most young, healthy individuals the eGFR will be >90 mL/min/1.73m2. The eGFR declines with age. An eGFR of 60-89 may be normal in some populations, particularly the elderly, for whom the CKD-EPI formula has not been extensively validated. Use of the eGFR is not recommended in the following populations:

Individuals with unstable creatinine concentrations, including patients and those with serious co-morbid conditions.

Patients with extremes in muscle mass or diet.

The data above are obtained from the National Kidney Disease Education Program (NKDEP) which additionally recommends that when the eGFR is used in patients with extremes of body mass index for purposes of drug dosing, the eGFR should be multiplied by the estimated BMI. [facility] ELECTROLYTES Calcium Lvl 8.6 8.5 - 10.5 01/06/2018 [facility] ELECTROLYTES CO2 25 24 - 32 01/06/2018 [facility] Total Protein 8.1 6.4 - 8.4 01/06/2018 [facility] ELECTROLYTES ALT 26 0 - 65 01/06/2018 [facility] ELECTROLYTES Albumin Lvl 3.0 3.5 - 5.0 01/06/2018 [facility] ELECTROLYTES AST 60 0 - 37 01/06/2018 [facility] ELECTROLYTES Alk Phos 101 39 - 136 01/06/2018 [facility] ELECTROLYTES BUN 19 7 - 22 01/06/2018 [facility] ELECTROLYTES Glucose Lvl 101 70 - 99 01/06/2018 [facility] ELECTROLYTES Sodium Lvl 136 135 - 145 01/06/2018 [facility] ELECTROLYTES Creatinine Lvl 1.17 0.50 - 1.40 01/06/2018 [facility] ELECTROLYTES Chloride Lvl 101 95 - 109 01/06/2018 [facility] ELECTROLYTES Potassium Lvl 3.8 3.5 - 5.1 01/06/2018 [facility] HEMATOLOGY Monocytes # 1.1 0.0 - 0.8 01/06/2018 [facility] HEMATOLOGY Segs-Bands # 10.7 1.5 - 8.1 01/06/2018 [facility] HEMATOLOGY Lymphocytes # 1.1 1.0 - 5.5 01/06/2018 [facility] HEMATOLOGY Monocytes 8.7 2.0 - 12.0 01/06/2018 [facility] HEMATOLOGY Eosinophils 0.3 0.0 - 4.0 01/06/2018 [facility] HEMATOLOGY Basophils 0.3 0.0 - 1.0 01/06/2018 [facility] HEMATOLOGY Lymphocytes 8.2 20.0 - 40.0 01/06/2018 [facility] HEMATOLOGY Segs 82.5 45.0 - 75.0 01/06/2018 [facility] HEMATOLOGY Hgb 10.6 14.0 - 18.0 01/06/2018 [facility] HEMATOLOGY RBC 3.80 4.70 - 6.10 01/06/2018 [facility] HEMATOLOGY MCV 86.3 80.0 - 94.0 01/06/2018 [facility] HEMATOLOGY Hct 32.8 42.0 - 54.0 01/06/2018 [facility] HEMATOLOGY WBC 12.9 3.7 - 10.4 01/06/2018 [facility] HEMATOLOGY MCHC 32.3 32.0 - 36.0 01/06/2018 [facility] HEMATOLOGY MPV 10.0 7.4 - 10.4 01/06/2018 [facility] HEMATOLOGY Platelet 295 133 - 450 01/06/2018 [facility] HEMATOLOGY RDW 16.0 11.5 - 14.5 01/06/2018 [facility] HEMATOLOGY MCH 27.9 27.0 - 31.0 01/06/2018 [facility] NDM (carbapenemase) Not Detected (01/05/18 11:23 PM) Not Detected 01/06/2018 [facility] OXA (carbapenemase) Not Detected (01/05/18 11:23 PM) Not Detected 01/06/2018 [facility] KPC (carbapenemase) Not Detected (01/05/18 11:23 PM) Not Detected 01/06/2018 [facility] VIM (carbapenemase) Not Detected (01/05/18 11:23 PM) Not Detected 01/06/2018 [facility] IMP (carbapenemase) Not Detected (01/05/18 11:23 PM) Not Detected 01/06/2018 [facility] CTX-M (ESBL) Not Detected (01/05/18 11:23 PM) Not Detected 01/06/2018 [facility] P. aeruginosa Not Detected (01/05/18 11:23 PM) Not Detected 01/06/2018 [facility] K. pneumoniae Detected *ABN* (01/05/18 11:23 PM) Not Detected 01/06/2018 [facility] Acinetobacter spp. Not Detected (01/05/18 11:23 PM) Not Detected 01/06/2018 [facility] Citrobacter spp. Not Detected (01/05/18 11:23 PM) Not Detected 01/06/2018 [facility] Proteus spp. Not Detected (01/05/18 11:23 PM) Not Detected 01/06/2018 [facility] Enterobacter spp. Not Detected (01/05/18 11:23 PM) Not Detected 01/06/2018 [facility] K. oxytoca Detected *ABN* (01/05/18 11:23 PM) Not Detected 01/06/2018 [facility] E. coli Not Detected (01/05/18 11:23 PM) Not Detected 01/06/2018 [facility] URINE AND STOOL UA Bili Negative *NA* (10/31/16 10:10 PM) Negative 11/01/2016 [facility] URINE AND STOOL UA Ketones Negative *NA* (10/31/16 10:10 PM) Negative 11/01/2016 [facility] URINE AND STOOL UA Urobilinogen 0.2 0.1 - 1.0 11/01/2016 [facility] URINE AND STOOL UA Blood Trace *ABN* (10/31/16 10:10 PM) Negative 11/01/2016 [facility] URINE AND STOOL UA Leuk Est Moderate *ABN* (10/31/16 10:10 PM) Negative 11/01/2016 [facility] URINE AND STOOL UA Nitrite Negative (10/31/16 10:10 PM) Negative 11/01/2016 [facility] URINE AND STOOL UA Color Yellow *NA* (10/31/16 10:10 PM) Yellow 11/01/2016 [facility] URINE AND STOOL UA Glucose Negative (10/31/16 10:10 PM) Negative 11/01/2016 [facility] URINE AND STOOL UA Spec Grav 1.025 <=1.030 11/01/2016 [facility] URINE AND STOOL UA Turbidity Clear (10/31/16 10:10 PM) Clear 11/01/2016 [facility] URINE AND STOOL UA Protein 30 mg/dL Negative mg/dL 11/01/2016 [facility] URINE AND STOOL UA pH 5.5 5.0 - 8.0 11/01/2016 [facility] URINE AND STOOL UA Sq Epi Few /LPF Few /LPF 11/01/2016 [facility] URINE AND STOOL UA Bacteria Occasional /HPF None Seen /HPF 11/01/2016 [facility] URINE AND STOOL UA WBC 21-50 /HPF None Seen /HPF 11/01/2016 [facility] URINE AND STOOL UA RBC 0-2 /HPF 0 - 2 11/01/2016 [facility] CARDIAC ENZYMES CK MB 1.3 0.5 - 3.6 11/01/2016 [facility] CARDIAC ENZYMES Troponin-I 0.03 0.00 - 0.40 11/01/2016 [facility] CARDIAC ENZYMES Total CK 221 12 - 191 11/01/2016 [facility] CARDIAC ENZYMES CK MB Index 0.6 0.0 - 2.5 11/01/2016 [facility] CHEM PANEL eGFR 98 11/01/2016 Result Comment: The eGFR is calculated using the CKD-EPI formula. In most young, healthy individuals the eGFR will be >90 mL/min/1.73m2. The eGFR declines with age. An eGFR of 60-89 may be normal in some populations, particularly the elderly, for whom the CKD-EPI formula has not been extensively validated. Use of the eGFR is not recommended in the following populations:

Individuals with unstable creatinine concentrations, including patients and those with serious co-morbid conditions.

Patients with extremes in muscle mass or diet.

The data above are obtained from the National Kidney Disease Education Program (NKDEP) which additionally recommends that when the eGFR is used in patients with extremes of body mass index for purposes of drug dosing, the eGFR should be multiplied by the estimated BMI. [facility] CHEM PANEL Bili Total 0.6 0.2 - 1.3 11/01/2016 [facility] CHEM PANEL AST 13 0 - 37 11/01/2016 [facility] CHEM PANEL ALT 11 0 - 65 11/01/2016 [facility] CHEM PANEL Albumin Lvl 2.8 3.5 - 5.0 11/01/2016 [facility] CHEM PANEL Alk Phos 96 39 - 136 11/01/2016 [facility] CHEM PANEL Potassium Lvl 3.4 3.5 - 5.1 11/01/2016 [facility] CHEM PANEL Glucose Lvl 95 70 - 99 11/01/2016 [facility] CHEM PANEL BUN 10 7 - 22 11/01/2016 [facility] CHEM PANEL Creatinine Lvl 0.84 0.50 - 1.40 11/01/2016 [facility] CHEM PANEL Sodium Lvl 142 135 - 145 11/01/2016 [facility] CHEM PANEL Total Protein 7.8 6.4 - 8.4 11/01/2016 [facility] CHEM PANEL Chloride Lvl 105 95 - 109 11/01/2016 [facility] CHEM PANEL Calcium Lvl 9.0 8.5 - 10.5 11/01/2016 [facility] CHEM PANEL CO2 30 24 - 32 11/01/2016 [facility] CHEM PANEL AGAP 10.4 10.0 - 20.0 11/01/2016 [facility] CHEM PANEL B/C Ratio 12 6 - 25 11/01/2016 [facility] CHEM PANEL A/G Ratio 0.6 0.7 - 1.6 11/01/2016 [facility] CHEM PANEL Globulin 5.0 2.7 - 4.2 11/01/2016 [facility] CHEM PANEL Procalcitonin Lvl <0.05 ng/mL 0.00 - 0.10 11/01/2016 [facility] CHEM PANEL Lactic Acid Lvl 1.6 0.5 - 2.2 11/01/2016 [facility] HEMATOLOGY PTT 40.3 22.9 - 35.8 11/01/2016 [facility] HEMATOLOGY INR 1.29 0.85 - 1.17 11/01/2016 [facility] HEMATOLOGY PT 16.3 12.0 - 14.7 11/01/2016 [facility] WBC 9.7 3.7 - 10.4 11/01/2016 [facility] Hct 32.0 42.0 - 54.0 11/01/2016 [facility] HEMATOLOGY Hgb 10.1 14.0 - 18.0 11/01/2016 [facility] RBC 3.81 4.70 - 6.10 11/01/2016 [facility] MCHC 31.7 32.0 - 36.0 11/01/2016 [facility] MCH 26.6 27.0 - 31.0 11/01/2016 [facility] MCV 84.1 80.0 - 94.0 11/01/2016 [facility] Platelet 301 133 - 450 11/01/2016 [facility] RDW 17.2 11.5 - 14.5 11/01/2016 [facility] MPV 8.8 7.4 - 10.4 11/01/2016 [facility] Lymphocytes # 1.9 1.0 - 5.5 11/01/2016 [facility] HEMATOLOGY Monocytes # 0.8 0.0 - 0.8 11/01/2016 [facility] HEMATOLOGY Eosinophils 8.0 0.0 - 4.0 11/01/2016 [facility] HEMATOLOGY Basophils 0.8 0.0 - 1.0 11/01/2016 [facility] Segs-Bands # 6.2 1.5 - 8.1 11/01/2016 [facility] HEMATOLOGY Basophils # 0.1 0.0 - 0.2 11/01/2016 [facility] HEMATOLOGY Eosinophils # 0.8 0.0 - 0.5 11/01/2016 [facility] Lymphocytes 19.9 20.0 - 40.0 11/01/2016 [facility] HEMATOLOGY Segs 63.2 45.0 - 75.0 11/01/2016 [facility] Monocytes 8.1 2.0 - 12.0 11/01/2016 [facility] CHEM PANEL eGFR 108 08/24/2015 Result Comment: The eGFR is calculated using the CKD-EPI formula. In most young, healthy individuals the eGFR will be >90 mL/min/1.73m2. The eGFR declines with age. An eGFR of 60-89 may be normal in some populations, particularly the elderly, for whom the CKD-EPI formula has not been extensively validated. Use of the eGFR is not recommended in the following populations:

Individuals with unstable creatinine concentrations, including patients and those with serious co-morbid conditions.

Patients with extremes in muscle mass or diet.

The data above are obtained from the National Kidney Disease Education Program (NKDEP) which additionally recommends that when the eGFR is used in patients with extremes of body mass index for purposes of drug dosing, the eGFR should be multiplied by the estimated BMI. [facility] CHEM PANEL AST 7 0 - 37 08/24/2015 [facility] CHEM PANEL Bili Total 0.6 0.2 - 1.3 08/24/2015 [facility] CHEM PANEL Alk Phos 100 39 - 136 08/24/2015 [facility] CHEM PANEL ALT 14 0 - 65 08/24/2015 [facility] CHEM PANEL Total Protein 7.8 6.4 - 8.4 08/24/2015 [facility] CHEM PANEL Creatinine Lvl 0.92 0.50 - 1.40 08/24/2015 [facility] CHEM PANEL CO2 29 24 - 32 08/24/2015 [facility] CHEM PANEL Potassium Lvl 3.7 3.5 - 5.1 08/24/2015 [facility] CHEM PANEL Chloride Lvl 106 95 - 109 08/24/2015 [facility] CHEM PANEL Albumin Lvl 3.0 3.5 - 5.0 08/24/2015 [facility] CHEM PANEL Calcium Lvl 8.2 8.5 - 10.5 08/24/2015 [facility] CHEM PANEL Glucose Lvl 99 70 - 99 08/24/2015 [facility] CHEM PANEL BUN 11 7 - 22 08/24/2015 [facility] CHEM PANEL Sodium Lvl 141 135 - 145 08/24/2015 [facility] CHEM PANEL B/C Ratio 12 6 - 25 08/24/2015 [facility] CHEM PANEL A/G Ratio 0.6 0.7 - 1.6 08/24/2015 [facility] CHEM PANEL Globulin 4.8 2.0 - 4.0 08/24/2015 [facility] CHEM PANEL AGAP 9.7 10.0 - 20.0 08/24/2015 [facility] CHEM PANEL Lipase Lvl 62 73 - 393 08/24/2015 [facility] HEMATOLOGY Platelet 312 133 - 450 08/24/2015 [facility] HEMATOLOGY MCH 26.0 27.0 - 31.0 08/24/2015 [facility] HEMATOLOGY MPV 9.8 7.4 - 10.4 08/24/2015 [facility] HEMATOLOGY MCHC 30.6 32.0 - 36.0 08/24/2015 [facility] HEMATOLOGY RDW 17.5 11.5 - 14.5 08/24/2015 [facility] HEMATOLOGY Hct 31.5 42.0 - 54.0 08/24/2015 [facility] HEMATOLOGY MCV 84.8 80.0 - 94.0 08/24/2015 [facility] HEMATOLOGY RBC 3.71 4.70 - 6.10 08/24/2015 [facility] HEMATOLOGY Hgb 9.6 14.0 - 18.0 08/24/2015 [facility] HEMATOLOGY WBC 13.0 3.7 - 10.4 08/24/2015 [facility] HEMATOLOGY Anisocyte 1+ *ABN* (08/24/15 1:47 PM) None Seen 08/24/2015 [facility] HEMATOLOGY Monocytes 6.6 2.0 - 12.0 08/24/2015 [facility] HEMATOLOGY Lymphocytes 10.1 20.0 - 40.0 08/24/2015 [facility] HEMATOLOGY Monocytes # 0.9 0.0 - 0.8 08/24/2015 [facility] HEMATOLOGY Segs 81.5 45.0 - 75.0 08/24/2015 [facility] HEMATOLOGY Plt Morph Normal (08/24/15 1:47 PM) 08/24/2015 [facility] HEMATOLOGY Eosinophils 1.1 0.0 - 4.0 08/24/2015 [facility] HEMATOLOGY Basophils 0.7 0.0 - 1.0 08/24/2015 [facility] HEMATOLOGY Basophils # 0.1 0.0 - 0.2 08/24/2015 [facility] HEMATOLOGY Eosinophils # 0.1 0.0 - 0.5 08/24/2015 [facility] HEMATOLOGY Lymphocytes # 1.3 1.0 - 5.5 08/24/2015 [facility] HEMATOLOGY Segs-Bands # 10.6 1.5 - 8.1 08/24/2015 [facility] TOXICOLOGY Vanco Tr TND 0500 05/21/2015 [facility] TOXICOLOGY Vanco Tr 14.7 05/21/2015 [facility] CHEM PANEL eGFR 117 05/20/2015 Result Comment: The eGFR is calculated using the CKD-EPI formula. In most young, healthy individuals the eGFR will be >90 mL/min/1.73m2. The eGFR declines with age. An eGFR of 60-89 may be normal in some populations, particularly the elderly, for whom the CKD-EPI formula has not been extensively validated. Use of the eGFR is not recommended in the following populations:

Individuals with unstable creatinine concentrations, including patients and those with serious co-morbid conditions.

Patients with extremes in muscle mass or diet.

The data above are obtained from the National Kidney Disease Education Program (NKDEP) which additionally recommends that when the eGFR is used in patients with extremes of body mass index for purposes of drug dosing, the eGFR should be multiplied by the estimated BMI. [facility] CHEM PANEL Calcium Lvl 8.2 8.5 - 10.5 05/20/2015 [facility] CHEM PANEL CO2 29 24 - 32 05/20/2015 [facility] CHEM PANEL Chloride Lvl 110 95 - 109 05/20/2015 [facility] CHEM PANEL Creatinine Lvl 0.8 0.5 - 1.4 05/20/2015 [facility] CHEM PANEL BUN 7 7 - 22 05/20/2015 [facility] CHEM PANEL Potassium Lvl 4.8 3.5 - 5.1 05/20/2015 [facility] CHEM PANEL Sodium Lvl 145 135 - 145 05/20/2015 [facility] CHEM PANEL Glucose Lvl 86 70 - 99 05/20/2015 [facility] CHEM PANEL AGAP 10.8 10.0 - 20.0 05/20/2015 [facility] HEMATOLOGY Hct 29.0 42.0 - 54.0 05/20/2015 [facility] HEMATOLOGY MCHC 30.6 32.0 - 36.0 05/20/2015 [facility] HEMATOLOGY MCV 79.0 80.0 - 94.0 05/20/2015 [facility] HEMATOLOGY MCH 24.1 27.0 - 31.0 05/20/2015 [facility] HEMATOLOGY RBC 3.68 4.70 - 6.10 05/20/2015 [facility] HEMATOLOGY Hgb 8.9 14.0 - 18.0 05/20/2015 [facility] HEMATOLOGY WBC 9.2 3.7 - 10.4 05/20/2015 [facility] HEMATOLOGY MPV 8.2 7.4 - 10.4 05/20/2015 [facility] HEMATOLOGY Platelet 356 133 - 450 05/20/2015 [facility] HEMATOLOGY RDW 19.0 11.5 - 14.5 05/20/2015 [facility] HEMATOLOGY Basophils 0.4 0.0 - 1.0 05/20/2015 [facility] HEMATOLOGY Monocytes # 0.8 0.0 - 0.8 05/20/2015 [facility] HEMATOLOGY Segs-Bands # 5.3 1.5 - 8.1 05/20/2015 [facility] HEMATOLOGY Lymphocytes # 2.4 1.0 - 5.5 05/20/2015 [facility] HEMATOLOGY Eosinophils 8.6 0.0 - 4.0 05/20/2015 [facility] HEMATOLOGY Basophils # 0.0 0.0 - 0.2 05/20/2015 [facility] HEMATOLOGY Eosinophils # 0.8 0.0 - 0.5 05/20/2015 [facility] HEMATOLOGY Segs 57.1 45.0 - 75.0 05/20/2015 [facility] HEMATOLOGY Lymphocytes 25.6 20.0 - 40.0 05/20/2015 [facility] HEMATOLOGY Monocytes 8.3 2.0 - 12.0 05/20/2015 [facility] HEMATOLOGY Monocytes 7.5 2.0 - 12.0 05/19/2015 [facility] HEMATOLOGY Lymphocytes 23.2 20.0 - 40.0 05/19/2015 [facility] HEMATOLOGY Segs 60.9 45.0 - 75.0 05/19/2015 [facility] HEMATOLOGY Basophils 0.5 0.0 - 1.0 05/19/2015 [facility] HEMATOLOGY Eosinophils 7.9 0.0 - 4.0 05/19/2015 [facility] HEMATOLOGY Monocytes # 0.7 0.0 - 0.8 05/19/2015 [facility] HEMATOLOGY Lymphocytes # 2.2 1.0 - 5.5 05/19/2015 [facility] HEMATOLOGY Segs-Bands # 5.7 1.5 - 8.1 05/19/2015 [facility] HEMATOLOGY Basophils # 0.0 0.0 - 0.2 05/19/2015 [facility] HEMATOLOGY Eosinophils # 0.7 0.0 - 0.5 05/19/2015 [facility] HEMATOLOGY MPV 7.3 7.4 - 10.4 05/19/2015 [facility] HEMATOLOGY Hct 29.2 42.0 - 54.0 05/19/2015 [facility] HEMATOLOGY Platelet 380 133 - 450 05/19/2015 [facility] HEMATOLOGY RDW 18.4 11.5 - 14.5 05/19/2015 [facility] HEMATOLOGY MCHC 30.5 32.0 - 36.0 05/19/2015 [facility] HEMATOLOGY MCH 23.7 27.0 - 31.0 05/19/2015 [facility] HEMATOLOGY MCV 77.8 80.0 - 94.0 05/19/2015 [facility] HEMATOLOGY Hgb 8.9 14.0 - 18.0 05/19/2015 [facility] HEMATOLOGY RBC 3.75 4.70 - 6.10 05/19/2015 [facility] HEMATOLOGY WBC 9.4 3.7 - 10.4 05/19/2015 [facility] ELECTROLYTES AGAP 11.3 10.0 - 20.0 05/18/2015 [facility] ELECTROLYTES eGFR 124 05/18/2015 Result Comment: The eGFR is calculated using the CKD-EPI formula. In most young, healthy individuals the eGFR will be >90 mL/min/1.73m2. The eGFR declines with age. An eGFR of 60-89 may be normal in some populations, particularly the elderly, for whom the CKD-EPI formula has not been extensively validated. Use of the eGFR is not recommended in the following populations:

Individuals with unstable creatinine concentrations, including patients and those with serious co-morbid conditions.

Patients with extremes in muscle mass or diet.

The data above are obtained from the National Kidney Disease Education Program (NKDEP) which additionally recommends that when the eGFR is used in patients with extremes of body mass index for purposes of drug dosing, the eGFR should be multiplied by the estimated BMI. [facility] ELECTROLYTES Calcium Lvl 7.8 8.5 - 10.5 05/18/2015 [facility] ELECTROLYTES CO2 28 24 - 32 05/18/2015 [facility] ELECTROLYTES Creatinine Lvl 0.7 0.5 - 1.4 05/18/2015 [facility] ELECTROLYTES Chloride Lvl 109 95 - 109 05/18/2015 [facility] ELECTROLYTES Potassium Lvl 4.3 3.5 - 5.1 05/18/2015 [facility] ELECTROLYTES Sodium Lvl 144 135 - 145 05/18/2015 [facility] ELECTROLYTES Glucose Lvl 81 70 - 99 05/18/2015 [facility] ELECTROLYTES BUN 7 7 - 22 05/18/2015 [facility] HEMATOLOGY Segs 57.2 45.0 - 75.0 05/18/2015 [facility] HEMATOLOGY Lymphocytes # 2.0 1.0 - 5.5 05/18/2015 [facility] HEMATOLOGY Segs-Bands # 4.7 1.5 - 8.1 05/18/2015 [facility] HEMATOLOGY Monocytes # 0.6 0.0 - 0.8 05/18/2015 [facility] HEMATOLOGY Basophils 2.2 0.0 - 1.0 05/18/2015 [facility] HEMATOLOGY Eosinophils # 0.7 0.0 - 0.5 05/18/2015 [facility] HEMATOLOGY Basophils # 0.2 0.0 - 0.2 05/18/2015 [facility] HEMATOLOGY Eosinophils 8.5 0.0 - 4.0 05/18/2015 [facility] HEMATOLOGY Monocytes 7.3 2.0 - 12.0 05/18/2015 [facility] HEMATOLOGY Lymphocytes 24.8 20.0 - 40.0 05/18/2015 [facility] HEMATOLOGY WBC 8.2 3.7 - 10.4 05/18/2015 [facility] HEMATOLOGY Hct 27.1 42.0 - 54.0 05/18/2015 [facility] HEMATOLOGY Hgb 8.2 14.0 - 18.0 05/18/2015 [facility] HEMATOLOGY RBC 3.45 4.70 - 6.10 05/18/2015 [facility] HEMATOLOGY MCV 78.5 80.0 - 94.0 05/18/2015 [facility] HEMATOLOGY MCHC 30.3 32.0 - 36.0 05/18/2015 [facility] HEMATOLOGY MCH 23.8 27.0 - 31.0 05/18/2015 [facility] HEMATOLOGY Platelet 371 133 - 450 05/18/2015 [facility] HEMATOLOGY RDW 18.6 11.5 - 14.5 05/18/2015 [facility] HEMATOLOGY MPV 7.8 7.4 - 10.4 05/18/2015 [facility] TOXICOLOGY Vanco Tr TND 0500 05/18/2015 [facility] TOXICOLOGY Vanco Tr 8.3 05/18/2015 [facility] IMMUNOLOGY Prealbumin 8.3 18.0 - 45.0 05/17/2015 [facility] CHEM PANEL eGFR 124 05/16/2015 Result Comment: The eGFR is calculated using the CKD-EPI formula. In most young, healthy individuals the eGFR will be >90 mL/min/1.73m2. The eGFR declines with age. An eGFR of 60-89 may be normal in some populations, particularly the elderly, for whom the CKD-EPI formula has not been extensively validated. Use of the eGFR is not recommended in the following populations:

Individuals with unstable creatinine concentrations, including patients and those with serious co-morbid conditions.

Patients with extremes in muscle mass or diet.

The data above are obtained from the National Kidney Disease Education Program (NKDEP) which additionally recommends that when the eGFR is used in patients with extremes of body mass index for purposes of drug dosing, the eGFR should be multiplied by the estimated BMI. [facility] CHEM PANEL Alk Phos 78 39 - 136 05/16/2015 [facility] CHEM PANEL Bili Total 0.2 0.2 - 1.3 05/16/2015 [facility] CHEM PANEL ALT 11 0 - 65 05/16/2015 [facility] CHEM PANEL AST 14 0 - 37 05/16/2015 [facility] CHEM PANEL Potassium Lvl 3.7 3.5 - 5.1 05/16/2015 [facility] CHEM PANEL Chloride Lvl 109 95 - 109 05/16/2015 [facility] CHEM PANEL Creatinine Lvl 0.7 0.5 - 1.4 05/16/2015 [facility] CHEM PANEL Sodium Lvl 143 135 - 145 05/16/2015 [facility] CHEM PANEL Total Protein 6.6 6.4 - 8.4 05/16/2015 [facility] CHEM PANEL Albumin Lvl 1.8 3.5 - 5.0 05/16/2015 [facility] CHEM PANEL CO2 27 24 - 32 05/16/2015 [facility] CHEM PANEL Calcium Lvl 8.2 8.5 - 10.5 05/16/2015 [facility] CHEM PANEL Glucose Lvl 96 70 - 99 05/16/2015 [facility] CHEM PANEL BUN 8 7 - 22 05/16/2015 [facility] CHEM PANEL A/G Ratio 0.4 0.7 - 1.6 05/16/2015 [facility] CHEM PANEL Globulin 4.8 2.0 - 4.0 05/16/2015 [facility] CHEM PANEL B/C Ratio 11 6 - 25 05/16/2015 [facility] CHEM PANEL AGAP 10.7 10.0 - 20.0 05/16/2015 [facility] HEMATOLOGY PTT 39.1 22.9 - 35.8 05/13/2015 [facility] CHEM PANEL Lactic Acid Lvl 1.9 0.5 - 2.2 05/12/2015 [facility] CHEM PANEL eGFR 112 11/05/2014 <sup>1</sup>Result Comment: The eGFR is calculated using the CKD-EPI formula. In most young, healthy individuals the eGFR will be >90 mL/min/1.73m2. The eGFR declines with age. An eGFR of 60-89 may be normal in some populations, particularly the elderly, for whom the CKD-EPI formula has not been extensively validated. Use of the eGFR is not recommended in the following populations:& lt;br/>
Individuals with unstable creatinine concentrations, including patients and those with serious co-morbid conditions.

Patients with extremes in muscle mass or diet.

The data above are obtained from the National Kidney Disease Education Program (NKDEP) which additionally recommends that when the eGFR is used in patients with extremes of body mass index for purposes of drug dosing, the eGFR should be multiplied by the estimated BMI. [facility] CHEM PANEL Calcium Lvl 8.4 8.5 - 10.5 11/05/2014 [facility] CHEM PANEL CO2 28 24 - 32 11/05/2014 [facility] CHEM PANEL Potassium Lvl 3.9 3.5 - 5.1 11/05/2014 [facility] CHEM PANEL Chloride Lvl 106 95 - 109 11/05/2014 [facility] CHEM PANEL Sodium Lvl 140 135 - 145 11/05/2014 [facility] CHEM PANEL Glucose Lvl 87 70 - 99 11/05/2014 <sup>4</sup>Interpretive Data: Adult reference range values reflect the clinical guidelines
of the [place] [employer]. [facility] CHEM PANEL BUN 13 7 - 22 11/05/2014 [facility] CHEM PANEL Creatinine Lvl 0.9 0.5 - 1.4 11/05/2014 [facility] CHEM PANEL AGAP 9.9 10.0 - 20.0 11/05/2014 [facility] HEMATOLOGY MCHC 32.1 32.0 - 36.0 11/05/2014 [facility] HEMATOLOGY MCV 84.5 80.0 - 94.0 11/05/2014 [facility] HEMATOLOGY MCH 27.1 27.0 - 31.0 11/05/2014 [facility] HEMATOLOGY MPV 9.1 7.4 - 10.4 11/05/2014 [facility] HEMATOLOGY Platelet 324 133 - 450 11/05/2014 [facility] HEMATOLOGY RDW 15.9 11.5 - 14.5 11/05/2014 [facility] HEMATOLOGY Hct 29.4 42.0 - 54.0 11/05/2014 [facility] HEMATOLOGY Hgb 9.4 14.0 - 18.0 11/05/2014 [facility] HEMATOLOGY WBC 8.0 3.7 - 10.4 11/05/2014 [facility] HEMATOLOGY RBC 3.47 4.70 - 6.10 11/05/2014 [facility] HEMATOLOGY Eosinophils # 0.6 0.0 - 0.5 11/05/2014 [facility] HEMATOLOGY Basophils # 0.1 0.0 - 0.2 11/05/2014 [facility] HEMATOLOGY Monocytes # 0.6 0.0 - 0.8 11/05/2014 [facility] HEMATOLOGY Lymphocytes # 1.9 1.0 - 5.5 11/05/2014 [facility] HEMATOLOGY Segs-Bands # 4.8 1.5 - 8.1 11/05/2014 [facility] HEMATOLOGY Basophils 1.0 0.0 - 1.0 11/05/2014 [facility] HEMATOLOGY Eosinophils 7.6 0.0 - 4.0 11/05/2014 [facility] HEMATOLOGY Monocytes 8.0 2.0 - 12.0 11/05/2014 [facility] HEMATOLOGY Lymphocytes 23.6 20.0 - 40.0 11/05/2014 [facility] HEMATOLOGY Segs 59.8 45.0 - 75.0 11/05/2014 [facility] TOXICOLOGY Amikacin Lvl 7.5 11/04/2014 <sup>7</sup>Interpretive Data: Therapeutic Ranges

Trough: Less than 8.0 ug/mL
Peak: 20.0 - 30.0 ug/mL
Toxic: Greater than 30.0 ug/mL [facility] TOXICOLOGY Amikacin Lvl 6.9 11/04/2014 <sup>8</sup>Interpretive Data: Therapeutic Ranges

Trough: Less than 8.0 ug/mL
Peak: 20.0 - 30.0 ug/mL
Toxic: Greater than 30.0 ug/mL [facility] TOXICOLOGY Vanco Tr TND 1900 11/04/2014 [facility] TOXICOLOGY Vanco Tr 11.7 11/04/2014 <sup>10</sup>Interpretive Data: Therapeutic Range:
Trough: 10 - 20 ug/mL
Peak: 20 - 40 ug/mL
Potential Toxicity: >80 ug/mL [facility] CHEM PANEL eGFR 112 11/03/2014 <sup>2</sup>Result Comment: The eGFR is calculated using the CKD-EPI formula. In most young, healthy individuals the eGFR will be >90 mL/min/1.73m2. The eGFR declines with age. An eGFR of 60-89 may be normal in some populations, particularly the elderly, for whom the CKD-EPI formula has not been extensively validated. Use of the eGFR is not recommended in the following populations:& lt;br/>
Individuals with unstable creatinine concentrations, including patients and those with serious co-morbid conditions.

Patients with extremes in muscle mass or diet.

The data above are obtained from the National Kidney Disease Education Program (NKDEP) which additionally recommends that when the eGFR is used in patients with extremes of body mass index for purposes of drug dosing, the eGFR should be multiplied by the estimated BMI. [facility] CHEM PANEL Calcium Lvl 8.5 8.5 - 10.5 11/03/2014 [facility] CHEM PANEL CO2 29 24 - 32 11/03/2014 [facility] CHEM PANEL AGAP 9.3 10.0 - 20.0 11/03/2014 [facility] CHEM PANEL BUN 14 7 - 22 11/03/2014 [facility] CHEM PANEL Creatinine Lvl 0.9 0.5 - 1.4 11/03/2014 [facility] CHEM PANEL Chloride Lvl 104 95 - 109 11/03/2014 [facility] CHEM PANEL Potassium Lvl 4.3 3.5 - 5.1 11/03/2014 [facility] CHEM PANEL Sodium Lvl 138 135 - 145 11/03/2014 [facility] CHEM PANEL Glucose Lvl 103 70 - 99 11/03/2014 <sup>5</sup>Interpretive Data: Adult reference range values reflect the clinical guidelines
of the [place] [employer]. [facility] CHEM PANEL eGFR 112 11/02/2014 <sup>3</sup>Result Comment: The eGFR is calculated using the CKD-EPI formula. In most young, healthy individuals the eGFR will be >90 mL/min/1.73m2. The eGFR declines with age. An eGFR of 60-89 may be normal in some populations, particularly the elderly, for whom the CKD-EPI formula has not been extensively validated. Use of the eGFR is not recommended in the following populations:& lt;br/>
Individuals with unstable creatinine concentrations, including patients and those with serious co-morbid conditions.

Patients with extremes in muscle mass or diet.

The data above are obtained from the National Kidney Disease Education Program (NKDEP) which additionally recommends that when the eGFR is used in patients with extremes of body mass index for purposes of drug dosing, the eGFR should be multiplied by the estimated BMI. [facility] CHEM PANEL BUN 13 7 - 22 11/02/2014 [facility] CHEM PANEL Creatinine Lvl 0.9 0.5 - 1.4 11/02/2014 [facility] CHEM PANEL Potassium Lvl 4.1 3.5 - 5.1 11/02/2014 [facility] CHEM PANEL Sodium Lvl 141 135 - 145 11/02/2014 [facility] CHEM PANEL Chloride Lvl 106 95 - 109 11/02/2014 [facility] CHEM PANEL Calcium Lvl 8.9 8.5 - 10.5 11/02/2014 [facility] CHEM PANEL CO2 28 24 - 32 11/02/2014 [facility] CHEM PANEL Glucose Lvl 110 70 - 99 11/02/2014 <sup>6</sup>Interpretive Data: Adult reference range values reflect the clinical guidelines
of the [place] [employer]. [facility] CHEM PANEL AGAP 11.1 10.0 - 20.0 11/02/2014 [facility] HEMATOLOGY Segs 60.1 45.0 - 75.0 11/02/2014 [facility] HEMATOLOGY Segs-Bands # 5.0 1.5 - 8.1 11/02/2014 [facility] HEMATOLOGY Eosinophils 7.3 0.0 - 4.0 11/02/2014 [facility] HEMATOLOGY Basophils 0.4 0.0 - 1.0 11/02/2014 [facility] HEMATOLOGY Lymphocytes 24.7 20.0 - 40.0 11/02/2014 [facility] HEMATOLOGY Monocytes 7.5 2.0 - 12.0 11/02/2014 [facility] HEMATOLOGY Basophils # 0.0 0.0 - 0.2 11/02/2014 [facility] HEMATOLOGY Eosinophils # 0.6 0.0 - 0.5 11/02/2014 [facility] HEMATOLOGY Lymphocytes # 2.0 1.0 - 5.5 11/02/2014 [facility] HEMATOLOGY Monocytes # 0.6 0.0 - 0.8 11/02/2014 [facility] HEMATOLOGY RDW 15.8 11.5 - 14.5 11/02/2014 [facility] HEMATOLOGY Platelet 343 133 - 450 11/02/2014 [facility] HEMATOLOGY MPV 8.9 7.4 - 10.4 11/02/2014 [facility] HEMATOLOGY MCH 26.8 27.0 - 31.0 11/02/2014 [facility] HEMATOLOGY MCHC 32.0 32.0 - 36.0 11/02/2014 [facility] HEMATOLOGY Hct 30.8 42.0 - 54.0 11/02/2014 [facility] HEMATOLOGY MCV 84.0 80.0 - 94.0 11/02/2014 [facility] HEMATOLOGY Hgb 9.9 14.0 - 18.0 11/02/2014 [facility] HEMATOLOGY WBC 8.3 3.7 - 10.4 11/02/2014 [facility] HEMATOLOGY RBC 3.67 4.70 - 6.10 11/02/2014 [facility] HEMATOLOGY WBC 8.1 3.7 - 10.4 11/01/2014 [facility] HEMATOLOGY MPV 8.6 7.4 - 10.4 11/01/2014 [facility] HEMATOLOGY Platelet 341 133 - 450 11/01/2014 [facility] HEMATOLOGY RDW 15.6 11.5 - 14.5 11/01/2014 [facility] HEMATOLOGY MCHC 32.3 32.0 - 36.0 11/01/2014 [facility] HEMATOLOGY RBC 3.69 4.70 - 6.10 11/01/2014 [facility] HEMATOLOGY MCH 27.2 27.0 - 31.0 11/01/2014 [facility] HEMATOLOGY MCV 84.2 80.0 - 94.0 11/01/2014 [facility] HEMATOLOGY Hct 31.0 42.0 - 54.0 11/01/2014 [facility] HEMATOLOGY Hgb 10.0 14.0 - 18.0 11/01/2014 [facility] HEMATOLOGY Segs-Bands # 4.7 1.5 - 8.1 11/01/2014 [facility] HEMATOLOGY Basophils 0.4 0.0 - 1.0 11/01/2014 [facility] HEMATOLOGY Eosinophils 7.5 0.0 - 4.0 11/01/2014 [facility] HEMATOLOGY Monocytes 9.0 2.0 - 12.0 11/01/2014 [facility] HEMATOLOGY Basophils # 0.0 0.0 - 0.2 11/01/2014 [facility] HEMATOLOGY Eosinophils # 0.6 0.0 - 0.5 11/01/2014 [facility] HEMATOLOGY Monocytes # 0.7 0.0 - 0.8 11/01/2014 [facility] HEMATOLOGY Lymphocytes # 1.9 1.0 - 5.5 11/01/2014 [facility] HEMATOLOGY Lymphocytes 24.2 20.0 - 40.0 11/01/2014 [facility] HEMATOLOGY Segs 58.9 45.0 - 75.0 11/01/2014 [facility] TOXICOLOGY Amikacin Lvl 7.8 11/01/2014 <sup>9</sup>Interpretive Data: Therapeutic Ranges

Trough: Less than 8.0 ug/mL
Peak: 20.0 - 30.0 ug/mL
Toxic: Greater than 30.0 ug/mL [facility] TOXICOLOGY Vanco Tr TND 0700 11/01/2014 [facility] TOXICOLOGY Vanco Tr 9.6 11/01/2014 <sup>11</sup>Interpretive Data: Therapeutic Range:
Trough: 10 - 20 ug/mL
Peak: 20 - 40 ug/mL
Potential Toxicity: >80 ug/mL [facility] IMMUNOLOGY C-REACTIVE PROTEIN 99.9 <=2.9 mg/L 10/31/2014 [facility] TOXICOLOGY Vanco Tr TND 1900 10/31/2014 [facility] TOXICOLOGY Vanco Tr 9.1 10/31/2014 <sup>12</sup>Interpretive Data: Therapeutic Range:
Trough: 10 - 20 ug/mL
Peak: 20 - 40 ug/mL
Potential Toxicity: >80 ug/mL [facility] CHEM PANEL A/G Ratio 0.6 0.7 - 1.6 10/30/2014 [facility] CHEM PANEL B/C Ratio 19 6 - 25 10/30/2014 [facility] CHEM PANEL Globulin 4.0 2.0 - 4.0 10/30/2014 [facility] CHEM PANEL ALT 19 0 - 65 10/30/2014 [facility] CHEM PANEL Albumin Lvl 2.5 3.5 - 5.0 10/30/2014 [facility] CHEM PANEL Total Protein 6.5 6.4 - 8.4 10/30/2014 [facility] CHEM PANEL Alk Phos 88 39 - 136 10/30/2014 [facility] CHEM PANEL AST 36 0 - 37 10/30/2014 [facility] CHEM PANEL Bili Total 0.4 0.2 - 1.3 10/30/2014 [facility] CHEM PANEL Magnesium Lvl 1.7 1.8 - 2.4 10/30/2014 [facility] IMMUNOLOGY Prealbumin 11.5 18.0 - 45.0 10/30/2014 [facility] HEMATOLOGY PTT 53.0 22.9 - 35.8 10/30/2014 <sup>13</sup>Interpretive Data: Heparin Therapeutic Range: 57 - 92 Seconds [facility] HEMATOLOGY Sed Rate 73 0 - 15 10/30/2014 [facility] IMMUNOLOGY Prealbumin 13.2 18.0 - 45.0 10/30/2014 [facility] URINE AND STOOL UA Mucus Moderate /LPF None Seen /LPF 10/30/2014 [facility] URINE AND STOOL Micro? Performed (10/29/14 7:15 PM) 10/30/2014 [facility] URINE AND STOOL UA Sq Epi Few /LPF Few /LPF 10/30/2014 [facility] URINE AND STOOL UA WBC 11-20 /HPF None Seen /HPF 10/30/2014 [facility] URINE AND STOOL UA Bacteria Many /HPF None Seen /HPF 10/30/2014 [facility] URINE AND STOOL UA RBC 11-20 /HPF 0 - 2 10/30/2014 [facility] URINE AND STOOL UA Color Yellow *NA* (10/29/14 7:15 PM) Yellow 10/30/2014 [facility] URINE AND STOOL UA Turbidity Cloudy *ABN* (10/29/14 7:15 PM) Clear 10/30/2014 [facility] URINE AND STOOL UA pH 6.0 5.0 - 8.0 10/30/2014 [facility] URINE AND STOOL UA Spec Grav >=1.030 *ABN* (10/29/14 7:15 PM) <=1.030 10/30/2014 [facility] URINE AND STOOL UA Urobilinogen 0.2 0.1 - 1.0 10/30/2014 [facility] URINE AND STOOL UA Leuk Est Moderate *ABN* (10/29/14 7:15 PM) Negative 10/30/2014 [facility] URINE AND STOOL UA Nitrite Positive *ABN* (10/29/14 7:15 PM) Negative 10/30/2014 [facility] URINE AND STOOL UA Protein 30 mg/dL Negative mg/dL 10/30/2014 [facility] URINE AND STOOL UA Ketones Negative *NA* (10/29/14 7:15 PM) Negative 10/30/2014 [facility] URINE AND STOOL UA Bili Negative *NA* (10/29/14 7:15 PM) Negative 10/30/2014 [facility] URINE AND STOOL UA Glucose Negative (10/29/14 7:15 PM) Negative 10/30/2014 [facility] URINE AND STOOL UA Blood Moderate *ABN* (10/29/14 7:15 PM) Negative 10/30/2014 [facility] CHEM PANEL eGFR 125 10/15/2013 <sup>1</sup>Result Comment: The eGFR is calculated using the CKD-EPI formula. In most young, healthy individuals the eGFR will be >90 mL/min/1.73m2. The eGFR declines with age. An eGFR of 60-89 may be normal in some populations, particularly the elderly, for whom the CKD-EPI formula has not been extensively validated. Use of the eGFR is not recommended in the following populations:& lt;br/>
Individuals with unstable creatinine concentrations, including patients and those with serious co-morbid conditions.

Patients with extremes in muscle mass or diet.

The data above are obtained from the National Kidney Disease Education Program (NKDEP) which additionally recommends that when the eGFR is used in patients with extremes of body mass index for purposes of drug dosing, the eGFR should be multiplied by the estimated BMI. [facility] CHEM PANEL Calcium Lvl 9.0 8.5 - 10.5 10/15/2013 [facility] CHEM PANEL Glucose Lvl 84 70 - 99 10/15/2013 <sup>2</sup>Interpretive Data: Adult reference range values reflect the clinical guidelines
of the [place] [employer]. [facility] CHEM PANEL Creatinine Lvl 0.7 0.5 - 1.4 10/15/2013 [facility] CHEM PANEL BUN 12 7 - 22 10/15/2013 [facility] CHEM PANEL Sodium Lvl 140 135 - 145 10/15/2013 [facility] CHEM PANEL Potassium Lvl 4.4 3.5 - 5.1 10/15/2013 [facility] CHEM PANEL Chloride Lvl 106 95 - 109 10/15/2013 [facility] CHEM PANEL CO2 29 24 - 32 10/15/2013 [facility] CHEM PANEL AGAP 9.4 10.0 - 20.0 10/15/2013 [facility] HEMATOLOGY PT 14.1 12.0 - 14.7 10/15/2013 [facility] HEMATOLOGY INR 1.10 0.85 - 1.17 10/15/2013 <sup>3</sup>Interpretive Data: RECOMMENDED RANGES FOR PROTIME INR:
2.0-3.0 for most medical and surgical thromboembolic states.
2.5-3.5 for artificial heart valves and recurrent embolism.

INR SHOULD BE USED ONLY FOR PATIENTS ON STABLE ANTICOAGULANT THERAPY. [facility] HEMATOLOGY PTT 43.9 22.9 - 35.8 10/15/2013 <sup>4</sup>Interpretive Data: Heparin Therapeutic Range: 57 - 92 Seconds [facility] Pathology Reports No Data Provided for This Section Diagnostic Reports Report Value Date Source Retroperitoneal Complete US Retroperitoneal Complete US CLINICAL HISTORY: - uti. COMPARISON: None TECHNIQUE: Wood scale and color Doppler images of both kidneys were performed with a curvilinear transducer with standard technique. Static images are submitted for review. FINDINGS: KIDNEYS: The right kidney measures 11.4 x 5.7 x 5.9 cm and the left kidney measures 12.2 x 6.6 x 5.7 cm in the sagittal AP and transverse dimensions respectively. Kidneys are relatively symmetric in size. Moderate loss of cortical volume. No gross space-occupying lesion is visualized in either kidney. No hydronephrosis. Evaluation is limited due to bowel gas particularly in evaluation of the left kidney. AORTA, Proximal ILLIAC Arteries \\T\\ IVC: Largely obscured due to bowel. Visualized segments are unremarkable. BLADDER: Bladder is decompressed due to presence of [place] catheter ASCITES: No ascites noted. IMPRESSION: Loss of cortical volume suggests medical renal disease. No other significant sonographic abnormality is noted in either kidney. SL: KYLIE 05/23/2018 [facility] Outpatient Imaging [facility] Brain wo contrast CT CT HEAD WITHOUT CONTRAST Clinical Indication: - head injury. Comparison: 11/21/2011 TECHNIQUE: CT images were obtained from the foramen magnum to the vertex without the use of intravenous contrast on a multidetector CT. CT imaging was performed with exposure control parameters to reduce radiation dose. Coronal and sagittal reconstructions were obtained. CT radiation dose DLP: 1210.98 mGy-cm FINDINGS: There is no hemorrhage, extra-axial fluid collection, overt mass, midline shift or hydrocephalus. A partially empty sella configuration is noted, nonspecific. The visualized paranasal sinuses demonstrate mild scattered mucosal thickening within the bilateral ethmoid sinuses. The mastoid air cells are clear. The calvarium and skull base are intact. If clinical concern persists for acute pathology further evaluation with MRI brain can be obtained if warranted. IMPRESSION: No CT evidence of acute intracranial abnormality. SL: RANDALL 01/06/2018 [facility] Chest 1view DX Chest, single view dated 01/05/2018. HISTORY: Fever. Generalized weakness. Comparison is made to a prior study dated 10/31/2016. The heart is normal in size. The cardiomediastinal shadow is stable. The lungs appear clear. The pulmonary vasculature is normal in caliber. No acute pleural space abnormalities are identified. IMPRESSION: 1. No radiographic evidence of acute cardiopulmonary disease. SL: 131 01/05/2018 [facility] Bone scan 3 phase NM Clinical Indication: - LT foot poss osteo, pressure ulcer of left heel Comparison: None TECHNIQUE: Three phase bone scan of the bilateral feet is performed immediately, 5 minutes after, and 3 hours after intravenous administration of 20 mCi of technetium 99m- MDP. Anterior, posterior and oblique planar images were obtained. FINDINGS: The radionuclide angiographic images show intense uptake in the left heel. The blood pool images show moderate uptake in the left heel. The delayed images show moderate delayed uptake in the left heel. Other areas of uptake are seen in the thoracolumbar spine favored to be degenerative in nature. IMPRESSION: 1. Positive three phase uptake in the left heel consistent with osteomyelitis. 2. Degenerative type uptake in the thoracolumbar spine. Dedicated imaging of the spine may be performed for complete assessment. SL: [id number] 08/29/2017 [facility] Chest 1view DX Clinical Indication: Undifferentiated Sepsis - Undifferentiated Sepsis Comparison: None FINDINGS: The frontal chest radiograph shows normal lung volumes without interstitial or airspace opacities, pleural effusions or pneumothorax. The cardiomediastinal contours are normal for the age of the patient with aortic tortuosity. [<>] There are degenerative changes in the spine and shoulders. IMPRESSION: No chest radiographic evidence of acute cardiopulmonary disease. SL: NEHA 10/31/2016 [facility] Abdomen AP DX ABDOMEN-1 VIEW HX: Abdominal fullness Examination of the abdomen reveals bilateral fractured Jay rods in position. The rods are fractured at the T12 level on either side. There is evidence of fusion in the lower lumbar region on the right. Extensive heterotopic bone formation is present in this region. A laminectomy or congenital posterior element defect in the midline is suspected at the lumbosacral junction. Prominent bridging spur is present to the left at the L3- L4 disc level. There is a mild levoscoliosis. The bowel gas pattern is remarkable for moderate unformed stool in the colon from the distal transverse level to the left lower quadrant. There is no evidence of organ enlargement. IMPRESSION: 1. Old lower lumbar fusion of posterior elements, most prominent on the right. Possible laminectomy or congenital spina bifida defect at the lumbosacral junction. Unclear whether posterior element fusion is entirely intact. 2. Fractured Jay rods bilaterally with hussain discontinuities at the junction of the solid and ratcheted segments (usual breakage location) at the T12 level. 3. Nonspecific bowel gas pattern with moderate stool in the distal colon. SL: 12 05/19/2015 [facility] PICC insert with or without port VR LEFT UPPER EXTREMITY DUAL-LUMEN POWER PICC PLACEMENT INDICATION: IV access for medications. Informed consent was obtained. The upper medial left arm was prepped and draped in a sterile fashion. All elements of maximum sterile barrier technique were utilized. Ultrasound demonstrated a patent and compressible left brachial vein, which was accessed under direct real-time ultrasound guidance, utilizing 1% lidocaine local anesthesia, with a 21 gauge needle, and a 0.018 guidewire was manipulated under fluoroscopy into the superior vena cava. A 5 [place] peel-away sheath was introduced. The dual-lumen catheter was trimmed to the appropriate length and was manipulated under fluoroscopy into the superior vena cava. It was flushed with saline and a sterile dressing was applied. There were no complications. An image of the ultrasound guided venous access was obtained and was saved in PACS, and a digital chest image at the end of the procedure demonstrates termination of the catheter within the superior vena cava. Fluoro time: 0.2 minutes CPT: 59487, 47581, 28315 SL: 12 05/13/2015 [facility] Pelvis w IV contrast CT Examination: CT scan of the pelvis with contrast HISTORY: Fever COMPARISON: Plain film of the pelvis from 05/12/2015 DLP: 1516.23 TECHNIQUE: Multiple axial CT images of the pelvis were obtained following the administration of intravenous contrast. Multiplanar reformatted images were subsequently performed. FINDINGS: Remote postoperative changes of antegrade intramedullary nail fixation across a chronic healed left subtrochanteric fracture are seen. There is a broad, shallow sacral decubitus ulcer along the posterior midline soft tissues overlying the distal sacrum and coccyx. Mild chronic osseous remodeling of the underlying distal sacrum and proximal coccyx is seen with overlying areas of heterotopic ossification. Additional deep decubitus ulcers are seen extending down to the underlying ischial tuberosities. Chronic appearing osseous remodeling with sclerosis of the underlying ischial tuberosities are seen with adjacent areas of heterotopic ossification. Additional deep decubitus ulcer in the lateral soft tissues overlying the right hip is seen extending down to the greater trochanter. There is chronic osseous remodeling of the right greater trochanter with overlying heterotopic ossification. No osseous erosions of the hip or pelvis are seen. Severe bilateral hip osteoarthrosis is seen. Degenerative change in the visualized lower lumbar spine is seen. Limited views of the pelvic organs show a suprapubic catheter in position. IMPRESSION: 1. Numerous decubitus ulcers, as described above, without discrete underlying osseous erosion to suggest osteomyelitis. 2. Chronic osseous remodeling with sclerosis of the bilateral ischial tuberosities. Chronic osteomyelitis in these regions cannot be excluded. SL: 16 05/13/2015 [facility] Foot series DX Examination: Left foot, 2 views History: Pain in limb Comparison: 04/09/2014 Findings: Multiple views of the left foot show no acute bony fracture, joint dislocation, or definitive osseous erosion. Bones are demineralized. Soft tissue swelling throughout the hindfoot is seen. IMPRESSION: No acute bony abnormality of the left foot and no radiographic evidence of osteomyelitis. SL: 05/12/2015 [facility] Pelvis AP DX Examination: Pelvis, 2 views History: Back pain Comparison: None. Findings: Two views of the pelvis show no acute bony fracture, joint dislocation, or discrete osseous erosion. There is deep ulceration of the lateral soft tissues overlying the right hip. Chronic osseous remodeling of the underlying greater trochanter of the proximal right femur is seen with overlying areas of heterotopic ossification. Remote postoperative changes of intramedullary nail fixation across a left femoral subtrochanteric fracture are also seen with overlying areas of heterotopic ossification. Ligamentous ossification in the visualized lower lumbar spine is seen. Moderate bilateral hip osteoarthrosis is seen. IMPRESSION: No acute bony abnormality of the pelvis and no radiographic evidence of osteomyelitis. SL: 05/12/2015 [facility] Bone scan 3 phase NM EXAM: Three-phase bone scan. HISTORY: Left foot ulcer, osteomyelitis. COMPARISON: Left foot radiographs 04/09/2014. TECHNIQUE: Three-phase bone scan performed of the feet following IV administration of 30 mCi technetium 99m MDP. FINDINGS: Increased tracer activity in the left calcaneus and in the region of the proximal first and fifth metatarsals on blood flow, blood pool and delayed images. Chronic inflammatory type change in the interphalangeal joint of the right great toe. IMPRESSION: Findings compatible with acute osteomyelitis of the left calcaneus and proximal aspects of the left first and fifth metatarsals. SL: 11/05/2014 [facility] Pelvis biopsy needle guidance CT CT-GUIDED ASPIRATION AND BIOPSY OF THE LEFT HIP REGION. INDICATION: Paralysis with chronic hip disease, possible osteomyelitis. COMPARISON: CT pelvis 10/30/2014. Informed consent was obtained. Extensive fragmentation and hypertrophic changes with extensive soft tissue abnormality involving both hip regions appear grossly stable from the examination 2013. An area of low-attenuation superior to the left hip is also grossly unchanged. Under sterile conditions, utilizing CT guidance and 1% lidocaine local anesthesia, a 17-gauge coaxial needle was introduced into 3 separate areas of the left hip region in the areas of low-attenuation and bony fragmentation. No fluid could be aspirated. Multiple core specimens were obtained with an 18-gauge Bard Monopty needle. These were placed in saline for microbiology. There were no complications. SL: 11/03/2014 [facility] Pelvis w IV contrast CT EXAM: Pelvis w contrast CT DATE: Oct 30, 2014 10:18:06 AM INDICATION: Swelling, abscess on butt COMPARISON: CT pelvis 12/11/2013. TECHNIQUE: Multiple contiguous axial images of the pelvis are done post contrast administration. Coronal and sagittal reformats are provided. FINDINGS: Right L5 and S1 posterior bone remodeling, sclerosis, and bone formation is seen with probable posterior paraspinal minimal hypodense collection within soft tissue thickening. S4 to coccyx sclerosis, bone formation, and posterior erosions are again seen with soft tissue thickening extending to a sacral decubitus ulcer. No soft tissue gas or collection is identified at this location. Deep soft tissue ulceration is again seen involving the lower gluteal soft tissues extending to the ischial tuberosities bilaterally. Significant erosions involving bilateral ischial tuberosities is again seen with surrounding bone fragments. There is increased sclerosis involving bilateral inferior pubic rami. Bilateral hip articular surface irregularity, trochanteric, and proximal femoral erosions/sclerosis is seen. Erosion of the bilateral anterior/inferior iliac spine and bilateral anterior acetabular da silva is also seen. Bilateral hip joint effusion versus synovial thickening are present. Left lateral gluteal soft tissue thickening with a multilobulated fluid collection extending to the left hip joint is again seen with multiple focal calcifications. Left proximal femur intramedullary nail with femoral neck component is again seen in unchanged alignment without evidence of hardware failure or loosening. Moderate amount stool is seen in the rectosigmoid colon. Urinary bladder is collapsed around a suprapubic catheter. No adrenal free air or fluid is identified. The appendix is normal. Prominent bilateral external iliac and inguinal lymph nodes are again seen, likely reactive in nature. For example there is a 1.6 cm right external iliac lymph node (series 2, image 26). IMPRESSION: 1. No significant interval change compared to prior examination. 2. Findings suggestive of chronic osteomyelitis involving bilateral proximal femurs, right posterior L5-S1 level, ischial tuberosities, inferior pubic rami, anterior-inferior iliac wings, and lower sacrococcygeal region. 3. Bilateral hip joint effusion bursitis synovial thickening. Left lateral gluteal heterogenous multilobulated collection extends to the left hip joint. Findings are suggestive of neuropathic joint, however, overlying infection is not completely excluded. 4. Sacral decubitus ulcers. Deep ulcers in the lower gluteal regions extending to the issue tuberosities. SL: 12 10/30/2014 [facility] PICC insert with or without port VR LEFT UPPER EXTREMITY DUAL-LUMEN POWER PICC PLACEMENT INDICATION: IV access for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 CARDIOVASCULAR: S1, S2, regular. ABDOMEN: Soft, nontender. The patient had a suprapubic catheter. WOUNDS: Patient has numerous wounds, some of them stage III, IV. LINES: PICC ANTIMICROBIALS: 1. Vancomycin. 2. Amikacin iv ASSESSMENT AND RECOMMENDATIONS: 1. Polymicrobial MDR infected pressure wounds The patient with numerous pressure wounds, infected with polymicrobial organism including multidrug resistant Pseudomonas that is only susceptible to amikacin and colistin (cultures from outside). s/p IR guided tissue biopsy; no drainable fluid found. Tissue Culture neg. Will f/u on pathology. 2. Polymicrobial UTI: vancomycin, amikacin as above 3. Left foot osteomyelitis: Bonescan + for left calcaneus, 1st, 5th MT osteomyelitis. Again empiric antibiotics as above. Will recommend 4 weeks course. Increase Amikacin dose based on level. Monitor levels closely. Vanc Tr at goal. Continue wound care per Dr Corral. May go to [facility] today. 11/07/2014 [facility] Plan of Care Plan of Care Date Source Prescriptions See Medication Section 01/14/2019 [facility] Prescriptions See Medication Section 12/15/2018 [facility] Prescriptions See Medication Section 11/14/2018 [facility] Social History Social History Date Source No social history information available. 01/14/2019 [facility] Social History TypeResponse Substance Abuse Use: None. Alcohol Current, Type Beer, Wine, Liquor. Frequency: 1-2 times per month. Last use: over week. Previous treatment: None. Alcohol use interferes with work or home: No. Drinks more than intended: No. Others hurt by drinking: No. Ready to change: No. Household alcohol concerns: No. Smoking Status Former smoker; Type: Cigarettes; Exposure to Tobacco Smoke None; Other Tobacco Frequency Pt currently chew tobacco (OPAL Tovar); Cigarette Smoking Last 365 Days No; Reg Smoking Cessation Counseling No1 1stopped 200505/12/2015 [facility] Social History TypeResponse Substance Abuse Use: None. Alcohol Current, Type Beer, Wine, Liquor. Frequency: 1-2 times per month. Last use: over week. Previous treatment: None. Alcohol use interferes with work or home: No. Drinks more than intended: No. Others hurt by drinking: No. Ready to change: No. Household alcohol concerns: No. Smoking Status Former smoker; Type: Cigarettes; Exposure to Tobacco Smoke None; Cigarette Smoking Last 365 Days No; Reg Smoking Cessation Counseling No; Other Tobacco Frequency Pt currently chew tobacco (OPAL Tovar); 1 entered on: 01/24/19 1stopped 200505/12/2015 [facility] Social History TypeResponse Substance Abuse Use: None. Alcohol Current, Type Beer, Wine, Liquor. Frequency: 1-2 times per month. Last use: over week. Previous treatment: None. Alcohol use interferes with work or home: No. Drinks more than intended: No. Others hurt by drinking: No. Ready to change: No. Household alcohol concerns: No. Smoking Status Former smoker; Type: Cigarettes; Exposure to Tobacco Smoke None; Cigarette Smoking Last 365 Days No; Reg Smoking Cessation Counseling No; Other Tobacco Frequency Pt currently chew tobacco (OPAL Tovar); 1 entered on: 12/13/18 1stopped 200505/12/2015 [facility] Social History TypeResponse Substance Abuse Use: None. Alcohol Current, Type Beer, Wine, Liquor. Frequency: 1-2 times per month. Last use: over week. Previous treatment: None. Alcohol use interferes with work or home: No. Drinks more than intended: No. Others hurt by drinking: No. Ready to change: No. Household alcohol concerns: No. Smoking Status Former smoker; Exposure to Tobacco Smoke None; Cigarette Smoking Last 365 Days No; Reg Smoking Cessation Counseling No entered on: 01/07/18 05/12/2015 [facility] Outpatient Imaging [facility] Family History No Data Provided for This Section Advance Directives Order Name Results Value Date Source Advance Directives Advance Directives Directive Response Recorded Date/Time Does the patient have an advance directive? No 02/08/18 1:00pm If yes, is advance directive on file with [facility]? No 02/08/18 1:00pm If not on file with [facility] will patient provide a copy? No 02/08/18 1:00pm Do you have a Directive to Physician? No 12/14/18 2:43pm Do you have a Medical Power of Electrical Technology Instructor? No 12/14/18 2:43pm Do you have an out of hospital Do Not Resuscitate Order? No 12/14/18 2:43pm Do you have any special needs we should be aware of? No 12/14/18 2:43pm Do you have a support person here with you today? No 12/14/18 2:43pm Did patient receive Notice of Privacy Practices? Yes 12/14/18 2:43pm Did patient receive patient rights and responsibilities? Yes 12/14/18 2:43pm 01/14/2019 [facility] Advance Directives Advance Directives Directive Response Recorded Date/Time Does the patient have an advance directive? No 02/08/18 1:00pm If yes, is advance directive on file with [facility]? No 02/08/18 1:00pm If not on file with [facility] will patient provide a copy? No 02/08/18 1:00pm Do you have a Directive to Physician? No 11/16/18 4:14pm Do you have a Medical Power of Electrical Technology Instructor? No 11/16/18 4:14pm Do you have an out of hospital Do Not Resuscitate Order? No 11/16/18 4:14pm Do you have any special needs we should be aware of? No 11/16/18 4:14pm Do you have a support person here with you today? No 11/16/18 4:14pm Did patient receive Notice of Privacy Practices? Yes 11/16/18 4:14pm Did patient receive patient rights and responsibilities? Yes 11/16/18 4:14pm 12/15/2018 [facility] Advance Directives Advance Directives Directive Response Recorded Date/Time Does the patient have an advance directive? No 02/08/18 1:00pm If yes, is advance directive on file with [facility]? No 02/08/18 1:00pm If not on file with [facility] will patient provide a copy? No 02/08/18 1:00pm Do you have a Directive to Physician? No 10/12/18 3:44pm Do you have a Medical Power of Electrical Technology Instructor? No 10/12/18 3:44pm Do you have an out of hospital Do Not Resuscitate Order? No 10/12/18 3:44pm Do you have any special needs we should be aware of? No 10/12/18 3:44pm Do you have a support person here with you today? No 10/12/18 3:44pm Did patient receive Notice of Privacy Practices? Yes 10/12/18 3:44pm Did patient receive patient rights and responsibilities? Yes 10/12/18 3:44pm 11/14/2018 [facility] Functional Status No Data Provided for This Section
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
[2019-04-02 08:50] VITALS: BP 126/98
--- NOTE | 2019-04-02 12:30 | Operative Report ---
DATE OF PROCEDURE: 04/02/2019 SURGEON: Breezy Carrasquillo MD PREOPERATIVE DIAGNOSES: 1. Stage IV sacral pressure ulcer. 2. Unstageable right trochanteric pressure ulcer. POSTOPERATIVE DIAGNOSES: 1. Stage IV sacral pressure ulcer. 2. Unstageable right trochanteric pressure ulcer. PROCEDURES: 1. Excisional preparation of sacral pressure sore for skin grafting 50 cm2. 2. Split-thickness skin grafting, sacral pressure ulcer, 50 cm2. 3. Excision of right trochanteric ulcer. HISTORY: The patient is a 58-year-old quadriplegic male, who underwent flap closure of a sacral ulcer approximately one year ago. The flap and central area of necrosis, which is now fully granulated and is amenable to split-thickness skin grafting. He also has an unstageable draining ulcer on the right trochanter. The risks, benefits, and alternatives of treatment were discussed with the patient and he is prepared to undergo the procedure as outlined. PROCEDURE IN DETAIL: The patient was marked preoperatively in the holding area. He was brought to the operating theater and after the induction of adequate IV sedation, he was prepped and draped in a prone position and a time-out was performed. The procedure was begun by first curetting all the colonized granulation tissue from the sacral pressure ulcer. At this point, the ulcer was then power lavaged with 1 L of antibiotic containing solution. The total circumferential surface area of this wound was 50 cm2. A split-thickness skin graft was then harvested from the left lateral thigh using a dermatome and then meshed in a 1-1/2 to 1 fashion. The graft was placed on to the ulcer bed, secured using surgical clips. The right trochanteric ulcer was approximately 1 cm in diameter with firm indurated tissue around it. An elliptical incision was marked out. The incision was made through the skin and subcutaneous tissues and bleeding was controlled using the electrocautery. The incision was made full-thickness to the level of the trochanter and the tissue was then removed. There was a large amount of undermining and copious amounts of seropurulent exudate. This wound was then copiously irrigated with a power lavage until the effluent was clear. Because of the presence of infection, the wound was packed with moistened Kerlix gauze and left open. A VAC dressing was then applied to the sacral pressure sore skin graft site except for 125 mm of continuous negative pressure and the seal was noted to be satisfactory. The donor site on the left hip was dressed with Xeroform gauze and sterile dressings, and then the right trochanter was dressed with sterile dressings as well. The estimated blood loss for the entire procedure was approximately 50 mL. He was made supine onto the hospital bed, brought to recovery room in satisfactory condition, and discharged with a postoperative instruction sheet as well as a followup appointment. MD ZOË Tripp/MODL /[id number]
== END | disposition home or self-care (01) ==
LOC: OR 06:12
PROVIDERS: ATTEND Plastic Surgery
DX: L89.154 Pressure ulcer of sacral region, stage 4 (principal); L89.210 Pressure ulcer of right hip, unstageable; G82.53 Quadriplegia, C5-C7 complete; R00.1 Bradycardia, unspecified
CPT/HCPCS: 15100; 15950; 93005; J0690; J2250; J2704; J3010

== ENCOUNTER → 2019-04-15 | Outpatient (RCR) | payer MEDICARE ==
[~2019-04-15] MED LIST changes: -BACITRACIN 50,000 UNIT VIAL ONE; -CEFAZOLIN SOD 1 GM/NS 50ML 50 ML IV ONE; -FENTANYL CITRATE/PF 100MCG/2 ML INJ ONE; -MIDAZOLAM HCL 2 MG/2 ML VIAL ONE; -MINERAL OIL STERILE 10ML VIAL ONE; +MINERAL OIL/PETROLAT/GLYCERI 6OZ BTL ONE; -PROPOFOL IV EMULSION 10 MG/ML 20 ML VIAL ONE
== END ==
LOC: WCC 03-25 13:29
PROVIDERS: ATTEND Plastic Surgery
DX: T86.821 Skin graft (allograft) (autograft) failure (principal); L89.213 Pressure ulcer of right hip, stage 3; L89.892 Pressure ulcer of other site, stage 2; I87.312 Chronic venous hypertension (idiopathic) with ulcer of left lower extremity; L97.821 Non-pressure chronic ulcer of other part of left lower leg limited to breakdown of skin; G82.20 Paraplegia, unspecified; K94.00 Colostomy complication, unspecified; Z74.01 Bed confinement status

== ENCOUNTER 2019-05-13 12:03 | Outpatient (RCR) | payer MEDICARE ==
[~2019-05-13 12:03] MED LIST changes: -MUPIROCIN 2% OINT 22 GM TUBE ONE
[2019-05-13] MEDS ORDERED: MINERAL OIL/PETROLAT/GLYCERI 6OZ BTL ONE ×2 (15:46→18:02)
[2019-05-16] MEDS ORDERED: MINERAL OIL/PETROLAT/GLYCERI 6OZ BTL ONE (14:25)
== END 2019-05-16 ==
LOC: WCC 12:03
PROVIDERS: ATTEND Plastic Surgery
DX: T81.89XA Other complications of procedures, not elsewhere classified, initial encounter (principal); T86.821 Skin graft (allograft) (autograft) failure; Y83.4 Other reconstructive surgery as the cause of abnormal reaction of the patient, or of later complication, without mention of misadventure at the time of the procedure; K94.00 Colostomy complication, unspecified; L89.213 Pressure ulcer of right hip, stage 3; L89.892 Pressure ulcer of other site, stage 2; I87.312 Chronic venous hypertension (idiopathic) with ulcer of left lower extremity; L97.821 Non-pressure chronic ulcer of other part of left lower leg limited to breakdown of skin; Z74.01 Bed confinement status; G82.20 Paraplegia, unspecified

== ENCOUNTER 2019-06-10 14:23 | Outpatient (RCR) | payer MEDICARE ==
[~2019-06-10 14:23] MED LIST changes: +MUPIROCIN 2% OINT 22 GM TUBE ONE
[2019-06-12] MEDS ORDERED: EPINEPHRINE 1 MG/ML 30ML VIAL ONE (06:44)
== END 2019-06-15 ==
LOC: WCC 14:23
PROVIDERS: ATTEND Plastic Surgery
DX: T86.821 Skin graft (allograft) (autograft) failure (principal); Y83.4 Other reconstructive surgery as the cause of abnormal reaction of the patient, or of later complication, without mention of misadventure at the time of the procedure; L89.213 Pressure ulcer of right hip, stage 3; L89.892 Pressure ulcer of other site, stage 2; I87.312 Chronic venous hypertension (idiopathic) with ulcer of left lower extremity; L97.821 Non-pressure chronic ulcer of other part of left lower leg limited to breakdown of skin; Z74.01 Bed confinement status; K94.00 Colostomy complication, unspecified; G82.20 Paraplegia, unspecified
CPT/HCPCS: 87071; 87075; 87186; 87205

== ENCOUNTER 2019-07-18 15:34 | Outpatient (RCR) | payer MEDICARE ==
[~2019-07-18 15:34] MED LIST changes: -MINERAL OIL/PETROLAT/GLYCERI 6OZ BTL ONE; -MUPIROCIN 2% OINT 22 GM TUBE ONE
== END 2019-08-16 ==
LOC: WCC 15:34
PROVIDERS: ATTEND Plastic Surgery
DX: T86.821 Skin graft (allograft) (autograft) failure (principal); Y83.4 Other reconstructive surgery as the cause of abnormal reaction of the patient, or of later complication, without mention of misadventure at the time of the procedure; K94.00 Colostomy complication, unspecified; L89.213 Pressure ulcer of right hip, stage 3; L89.892 Pressure ulcer of other site, stage 2; I87.312 Chronic venous hypertension (idiopathic) with ulcer of left lower extremity; L97.821 Non-pressure chronic ulcer of other part of left lower leg limited to breakdown of skin; G82.20 Paraplegia, unspecified; B96.89 Other specified bacterial agents as the cause of diseases classified elsewhere; Z74.01 Bed confinement status